=== PATIENT | female | born 1970 | race Caucasian/White ===

== ENCOUNTER 2022-07-03 13:01 | Outpatient (CLI) | payer OTHER, SELFPAY ==
--- NOTE | 2022-07-03 13:00 | CRLHL7_ITS ---
For Patients: As a result of the Century Cures Act, medical imaging exams and procedure reports are released immediately into your electronic medical record. You may view this report before your referring provider. If you have questions, please contact your health care provider. BILATERAL SCREENING MAMMOGRAM WITH COMPUTER-AIDED DETECTION TECHNIQUE: CC, MLO and Implant displaced views were obtained. These mammographic images have been obtained using full-field digital technique. These mammographic images were interpreted with the benefit of computer-aided detection. COMPARISON FILM: 09/26/20, 07/23/18, 12/09/13. FINDINGS: There are scattered areas of fibroglandular density IMPRESSION: There is no radiographic evidence for malignancy. ASSESSMENT: BI-RADS Category 2: Benign RECOMMENDATION: Routine screening mammogram in 1 year. A lay language report of this examination will be provided to the patient. Demian Chou M.D. Diagnostic/Nuclear Medicine Radiologist [email or web address] MARYLU/Dictated by: Demian Chou MD @ 07/04/2022 8:11:00 AM (Electronically Signed)
== END 2022-07-03 13:02 | disposition home or self-care (01) ==
LOC: MAMMO 13:02
PROVIDERS: PCP Family Medicine; Visit Provider Family Medicine
DX: Z12.31 Encounter for screening mammogram for malignant neoplasm of breast (principal)
CPT/HCPCS: 77063; 77067

== ENCOUNTER 2023-08-08 19:06 | Inpatient (IN) | payer OTHER, SELFPAY ==
[2023-08-08] VITALS (16 sets, daily range): BP systolic 126–175; BP diastolic 79–95; PULSE 70–99; RESP 14–18; TEMP 36.4–36.9; O2SAT 87–100; BMI 21.6
--- NOTE | 2023-08-08 19:27 | ED_ITS ---
HPI - General Adult General Chief complaint: Extremity Pain/Injury, Upper Stated complaint: L distal radial fracture-[facility] called Time Seen by Provider: 08/08/23 19:17 History of Present Illness HPI narrative: Pt fractured left wrist. Dr. Bynum to surgically repair. Pt states she fell out of the bed of her pickup truck this afternoon. Landed on LEFT wrist. Spoke to ortho PA and was seen for fx . 52-year-old woman presenting to the emergency department on advice Orthopedics for surgical repair of left wrist. Early this afternoon she was cleaning her truck. Jumped out of her truck and landed on her left hand/wrist. Denies loss of consciousness or hitting her head. X-rays were done showing angulated both- bone distal wrist fracture - I have reviewed these images. Arrives to the emergency department for preoperative evaluation anticipating surgery. Have d iscussed with surgeon Dr. Bynum. No injuries sustained elsewhere. There is a question though of potentially open fracture. Was noted to have an abrasion at the palm of the left hand. Has since been splinted after evaluation by Orthopedics. Last had a little Gatorade around 3:00 p.m.. Notes herself to be generally well with a history of hypertension. History also of hyponatremia Anxiety and depression Denies sleep apnea Surgeries include hysterectomy and bunionectomy and breast augmentation and appendectomy Medications include diltiazem hydrochlorothiazide lisinopril and venlafaxine Denies any problem with anesthesia Notes an allergy to penicillin but this was a rash as a child Denies substance use or smoking. Does drink alcohol occasionally he did not to excess. Does endorse to 12 oz beers around noon today. Notes herself to be generally quite active walking regularly. Denies any exercise intolerance. Related Data Home Medications Medication Instructions Recorded Confirmed diltiazem HCl 240 mg 240 mg PO DAILY 08/08/23 08/08/23 capsule,extended release 24 hr hydrochlorothiazide 25 mg tablet 25 mg PO DAILY 08/08/23 08/08/23 lisinopril 40 mg tablet 40 mg PO DAILY 08/08/23 08/08/23 venlafaxine 75 mg capsule,extended 75 mg PO DAILY 08/08/23 08/08/23 release 24 hr Previous Rx's Medication Instructions Recorded oxycodone 5 mg tablet 5 mg PO Q4-8H PRN pain #10 tabs 08/08/23 Allergies Allergy/AdvReac Type Severity Reaction Status Date / Time Penicillins Allergy Unknown Verified 08/08/23 19:28 Review of Systems Status of ROS: Reports: 6 or more systems reviewed and unremarkable except as noted in History and below [facility] Social History Smoking Status: Never smoker Do you use any of these nicotine containing products: None Second hand tobacco smoke exposure: No How often do you have a drink containing alcohol: monthly or less How many standard drinks containing alcohol do you have on a typical day: 1 or 2 AUDIT-C Alcohol total score: 1 Non-prescribed substance use: denies use service: No Exam Narrative: Exam Narrative: Very pleasant. Energetic. Tanned. NAD. Cranial nerves 2-12 intact. She appears to have a resting tremor particularly noticeable about the head and neck. Skin otherwise is warm and dry without apparent rash. Extremities are well perfused without edema other than some subtle swelling of the left hand fingers. The left wrist and distal forearm is covered by a splint. The 4th finger of the left hand has an old subungual hematoma. Oropharynx is moist. I cannot easily visualize the uvula. Lungs are clear. Heart in regular rate and rhythm without murmur rub or gallop. Abdomen is soft and nontender. No masses appreciated. Blood pressure noted to be a little elevated on arrival. Const: Vital Signs, click to edit/add: Vital Signs - 24 hr 08/08/23 19:17 Temperature 97.8 F Pulse Rate [Pulse Oximeter] 79 Respiratory Rate 16 Blood Pressure [Le ft Upper Arm] 175/95 H Pulse Oximetry 95 Oxygen Delivery Me thod Room Air Documenting provider has reviewed patient's vital signs: yes Course Vital Signs Vital signs: Initial Vital Signs Temperature 97.8 F 08/08/23 19:17 Temperature Source Temporal Artery Scan 08/08/23 19:17 Pulse Rate 79 08/08/23 19:17 Pulse Rhythm Regular 08/08/23 19:17 Pulse Strength 3+ Normal 08/08/23 19:17 Respiratory Rate 16 08/08/23 19:17 Blood Pressure 175/95 H 08/08/23 19:17 Blood Pressure Mean 121 H 08/08/23 19:17 Blood Pressure Position Sitting 08/08/23 19:17 Pulse Oximetry 95 08/08/23 19:17 Oxygen Delivery Method Room Air 08/08/23 19:17 Vital Signs Temperature 97.8 F 08/08/23 19:17 Pulse Rate 79 08/08/23 19:17 Respiratory Rate 16 08/08/23 19:17 Blood Pressure 175/95 H 08/08/23 19:17 Pulse Oximetry 95 08/08/23 19:17 Oxygen Delivery Method Room Air 08/08/23 19:17 Temperature 97.8 F 08/08/23 19:17 Pulse Rate 79 08/08/23 19:17 Respiratory Rate 16 08/08/23 19:17 Blood Pressure 175/95 H 08/08/23 19:17 Pulse Oximetry 95 08/08/23 19:17 Oxygen Delivery Method Room Air 08/08/23 19:17 Medical Decision Making MDM Narrative Medical decision making narrative: Anticipating surgery on her left wrist. Would appear to be a good surgical candidate. Would like to check labs though initially particularly electrolytes. Will also check an alcohol level. Hemoglobin and then CBC for platelets. Will place IV. Initially noted that would be having a local block of some sort but after discussion with Anesthesia and they are anticipating a full sedation. Pending above, would consider Ms. Marie appropriate for trial of anesthesia and proposed surgery. Normal platelets and hemoglobin. 8:20 p.m. Pending chemistries. Requesting pain medication. Will give 500 mL bolus of normal saline along with 50 mcg of fentanyl. Unfortunately labs resulted now with a sodium of 118. I find that Ms. Marie has been transferred to the OR anticipating surgery. I have requested EKG. I have discussed with surgeon that I would at least hold deep anesthesia. My preference would be for local anesthetic at this time however would have other anesthetic efficacy concerns given sodium of 118. As anticipated alcohol level is also elevated at 0.19. Recommendations would be to replace sodium level and monitor for alcohol withdrawal pending any deep sedation. Uncertain where sodium level usually is. Presumably multifactorial. Will need to be admitted. I have discussed with our hospitalist for admission. Lab Data Lab results reviewed: Yes I reviewed the patient's lab results Labs: Lab Results 08/08/23 Range/Units 19:49 WBC 8.70 (4.50-11.00) K/uL RBC 4.11 (4.00-5.20) m/uL Hgb 13.2 (12.0-16.0) gm/dL Hct 37.1 (33.0-51.0) % MCV 90 (80-100) fL MCH 32 (26-34) pg MCHC 36 (32-36) gm/dL RDW Coeff of Parish 11.3 L (11.5-15.5) % Plt Count 250 (140-440) K/uL Neut % (Auto) 85.7 H (42.0-72.0) % Lymph % (Auto) 9.2 L (20-44) % Childress % (Auto) 4.3 (0.0-11.0) % Eos % (Auto) 0.5 (0.0-7.0) % Baso % (Auto) 0.2 (0.0-3.0) % Neut # (Auto) 7.50 H (1.7-7.0) K/uL Lymph # (Auto) 0.80 L (0.90-2.90) K/uL Childress # (Auto) 0.40 (0.00-0.90) K/UL Eos # (Auto) 0.04 (0.00-0.50) K/uL Baso # (Auto) 0.02 (0.00-0.30) K/uL Abs Immat Gran (auto) 0.01 (0.00-0.30) K/uL Imm/Tot Granulo (auto) 0.1 % Sodium 118 L* (135-149) mmol/L Potassium 3.7 (3.6-5.1) mmol/L Chloride 79 L (96-114) mmol/L Carbon Dioxide 25 (20-32) mmol/L Anion Gap 14 (7-15) mEq/L BUN 6 L (7-30) mg/dL Creatinine 0.4 L (0.5-1.5) mg/dL Estimated Creat Clear 146.36 Estimated GFR 118 ml/min Glucose 94 (60-115) mg/dL Calcium 8.8 (8.4-10.6) mg/dL Ethyl Alcohol 0.19 H (0.01-0.03) % Discharge Plan Discharge Clinical Impression: Left wrist fracture, Alcohol intoxication Patient Disposition: Admitted As Observation Condition: Stable Instructions: Deep Sedation (DC), Peripheral Nerve Block (DC), ORIF of a Wrist Fracture (DC) Additional Instructions: F/u PA visit in 10 days for splint removal and cast application F/U Dr. Arias at 3 week juan post op. Activity Level: Activity as Tolerated Activity Detail: Elevate operative extremity at/above heart level Range of motion of any joint (including fingers) out of splint 10+ times per day as tolerated (Elbow & digits). If splint is in place, then maintain splint until followup May shower as tolerated. Keep splint clean and dry Ice to operative site as needed (20 min on, 20 min off; repeat) Discharge Diet: Regular Prescriptions: New oxycodone 5 mg tablet 5 mg PO Q4-8H PRN (Reason: pain) Qty: 10 0RF Continued venlafaxine 75 mg capsule,extended release 24hr 75 mg PO DAILY diltiazem HCl 240 mg capsule,extended release 24hr 240 mg PO DAILY hydrochlorothiazide 25 mg tablet 25 mg PO DAILY lisinopril 40 mg tablet 40 mg PO DAILY Follow Up/Referrals: Rivera Arias MD [Staff Physician] - Suzy Ge MD [Primary Care Provider] - Stand Alone Forms: [facility] Info Instructions
--- NOTE | 2023-08-08 20:00 | XR_ITS ---
Patient: GISSEL TRAN Facility:?[facility] Patient ID:?[id number] Site Patient ID:?[id number]. Site :?[id number] Study:?XRay-Extremity Left wrist 3v-08/08/2023 9:39:31 PM Ordering Physician:ERVIN Final Report: HISTORY: Status post ORIF of wrist fracture. COMPARISON: Plain films of the wrist from the same day. FINDINGS: Intraoperative fluoroscopy is provided. 25.7 seconds of fluoroscopic time was used. Three images from intraoperative fluoroscopy are submitted. AP, lateral, and oblique views of the left wrist are obtained for a total of three views. During the interval, the comminuted, transverse fracture of the distal radius has been reduced to near anatomic alignment with a volar metal plate and multiple anchoring screws. The comminuted, transverse fracture of the distal ulna has also been reduced to near anatomic alignment without fixation. The bones of the carpus are in anatomic alignment with the distal radial fracture fragments. No degenerative disease is seen. The soft tissues are normal in appearance with no sign of foreign body. IMPRESSION: 1. Near anatomic alignment of fracture fragments status post ORIF of the comminuted, transverse fracture of the distal radius. 2. The transverse, comminuted fracture of the distal ulna has been reduced to near anatomic alignment as well without fixation. Dictated by Dawson Broderick MD @ 08/09/2023 10:16:47 PM Signed by:?Dawson Broderick MD @08/09/2023 10:16:47 PM (Electronic Signature)
[2023-08-08 20:02] LABS: Basophils Absolute Auto 0.02 K/uL (0.00-0.30); Basophils Percent Auto 0.2 % (0.0-3.0); Eosinophils Absolute Auto 0.04 K/uL (0.00-0.50); Eosinophils Percent Auto 0.5 % (0.0-7.0); Hematocrit 37.1 % (33.0-51.0); Hemoglobin* 13.2 gm/dL (12.0-16.0); Immature Granulocytes Abs Auto 0.01 K/uL (0.00-0.30); Immature Granulocytes Pct Auto 0.1 %; Lymphocytes Percent Auto 9.2 % (20-44); Mean Corpuscular HGB Conc 36 gm/dL (32-36); Mean Corpuscular Hemoglobin 32 pg (26-34); Mean Corpuscular Volume 90 fL (80-100); Monocytes Percent Auto 4.3 % (0.0-11.0); Neutrophils Percent Auto 85.7 % (42.0-72.0); Platelet Count* 250 K/uL (140-440); RDW Coefficient of Variation % 11.3 % (11.5-15.5); Red Blood Count 4.11 m/uL (4.00-5.20)
[2023-08-08 20:11] LABS: Slide Review Reflex No
[2023-08-08] MEDS: 0.9 % SODIUM CHLORIDE 500 ML 500 ML 100 ML IV (20:17)
[2023-08-08 20:20] LABS: Chloride* 79 mmol/L (96-114); Potassium* 3.7 mmol/L (3.6-5.1)
[2023-08-08 20:22] LABS: Creatinine* 0.4 mg/dL (0.5-1.5); Est. Creatinine Clearance* 146.36; Estimated Glomerular Filt Rate 118 ml/min
[2023-08-08 20:23] LABS: Anion Gap 14 mEq/L (7-15); Blood Urea Nitrogen* 6 mg/dL (7-30); Carbon Dioxide* 25 mmol/L (20-32); Ethanol* 0.19 % (0.01-0.03); Glucose* 94 mg/dL (60-115)
--- NOTE | 2023-08-08 20:23 | PM.ORCN ---
History of Present Illness HPI Date Seen: 08/08/23 Chief complaint: L distal radial fracture-[facility] called Narrative: Shelby is a pleasant 52-year-old female. She was trying to clean out bed of her pickup truck. Washed it out, unfortunately slipped getting out and landed onto an outstretched left arm. Severe pain and deformity. She notified 1 of our PAs, Radha Potter. They presented to the [facility]. X-rays were obtained. This revealed a left distal radius fracture. There is also small erythematous region with sanguinous drainage on the volar ulnar aspect of the wrist. This was felt to be an open fracture. She then was encouraged to present to [facility]. Thereafter we anticipated she would need surgery for irrigation debridement of the open distal radius fracture on the left as well as ORIF. Her wrist was splinted in our orthopedic clinic. Last drank a little Gatorade around 3:00 p.m.. Notes herself to be generally well with a history of hypertension. History also of hyponatremia Anxiety and depression Denies sleep apnea Surgeries include hysterectomy and bunionectomy and breast augmentation and appendectomy Medications include diltiazem hydrochlorothiazide lisinopril and venlafaxine Denies any problem with anesthesia Notes an allergy to penicillin but this was a rash as a child Denies substance use or smoking. Does drink alcohol occasionally he did not to excess. Does endorse to 12 oz beers around noon today. Notes herself to be generally quite active walking regularly. Denies any exercise intolerance. [facility] Social History Smoking Status: Never smoker Do you use any of these nicotine containing products: None Second hand tobacco smoke exposure: No How often do you have a drink containing alcohol: monthly or less How many standard drinks containing alcohol do you have on a typical day: 1 or 2 AUDIT-C Alcohol total score: 1 Non-prescribed substance use: denies use service: No Meds Home Medications and Allergies Home Medications Medication Instructions Recorded Confirmed Type diltiazem HCl 240 mg 240 mg PO DAILY 08/08/23 08/08/23 History capsule,extended release 24 hr hydrochlorothiazide 25 mg tablet 25 mg PO DAILY 08/08/23 08/08/23 History lisinopril 40 mg tablet 40 mg PO DAILY 08/08/23 08/08/23 History venlafaxine 75 mg capsule,extended 75 mg PO DAILY 08/08/23 08/08/23 History release 24 hr Allergies Allergy/AdvReac Type Severity Reaction Status Date / Time Penicillins Allergy Unknown Verified 08/08/23 19:28 Ortho Exam Narrative Exam Narrative: Alert and orient x3. No acute distress. Nonlabored breathing. Cooperative with the exam. Exam of the left upper extremity shows short-arm splint to be in place. Picture of the immediate post injury time shows an abrasion with erythema on the volar ulnar aspect of the wrist measures approximately 5 mm in diameter. This is overlying the apex of the angulation volarly. Neurologically intact distally in the radial, ulnar, and median nerve distribution to sensory light touch and motor function. Digits pink, warm, brisk capillary refill. Const Vital Signs, click to edit/add: Vital Signs - 24 hr 08/08/23 19:17 Temperature 97.8 F Pulse Rate [Pulse Oximeter] 79 Respiratory Rate 16 Blood Pressure [Left Upper Arm] 175/95 H Pulse Oximetry 95 Oxygen Delivery Method Room Air Results Labs Labs: Laboratory Results - last 48 hr 08/08/23 19:49 WBC 8.70 RBC 4.11 Hgb 13.2 Hct 37.1 MCV 90 MCH 32 MCHC 36 RDW Coeff of Parish 11.3 L Plt Count 250 Neut % (Auto) 85.7 H Lymph % (Auto) 9.2 L Dolores % (Auto) 4.3 Eos % (Auto) 0.5 Baso % (Auto) 0.2 Neut # (Auto) 7.50 H Lymph # (Auto) 0.80 L Dolores # (Auto) 0.40 Eos # (Auto) 0.04 Baso # (Auto) 0.02 Abs Immat Gran (auto) 0.01 Imm/Tot Granulo (auto) 0.1 Diagnostic results Additional Comments: PA, lateral, and oblique views of the left wrist from [facility] dated 08/08/2023 were ordered by different provider and reviewed by me. This demonstrates a left distal radius extra-articular fracture that is primarily transverse through the metaphyseal region. 45 degree dorsal angulation. There is a distal ulna metaphyseal fractures well. Both of these are comminuted fractures. Shortened as well. Assessment and Plan Assessment and plan (1) Open fracture of left distal radius: Status: Acute Plan Had a good discussion today with Shelby. In my opinion, given the concern for open fracture, I do feel that this is an urgent surgery. I would recommend irrigation debridement as well as open reduction with internal fixation of the left distal radius. We discussed the risks, benefits, and alternatives to this elective surgery. This includes infection, wound healing issues, nerve injury, numbness/tingling, heart attack, stroke, etc.. After discussion of these risks and benefits and alternatives, she indeed elects to proceed with surgery. Will plan to do this tonight. We have called in the operating room team. After the surgery, I would anticipate short-arm splint. I would also anticipate that she may go home this evening. Her is with her. Good social support system at home.
[2023-08-08 20:24] LABS: Calcium* 8.8 mg/dL (8.4-10.6)
[2023-08-08 20:27] LABS: Sodium* 118 mmol/L (135-149)
--- NOTE | 2023-08-08 20:52 | SUR.OPER ---
PATIENT QUESTIONS ANSWERED SATISFACTORILY PREOPERATIVELY. PATIENT BROUGHT TO OR #2 PER WHEELCHAIR FROM E.D. Patient positioned supine on OR #2 bed. The perioperative team supported arms bilaterally on arm boards. Final approval of positioning by surgeon.
[2023-08-08 21:13] LABS: Sodium* 117 mmol/L (135-149)
[2023-08-08] MEDS: lidocaine HCL 2 % MULTIDOSE 20 ML VIAL 10 ML INJECTION (21:44)
[2023-08-08] MEDS: BUPIVACAINE 0.5 %/EPI 1:200K 10 ML INJECTION (21:44)
[2023-08-08] MEDS: BACITRACIN OINTMENT BULK TUBE 1 APPLIC TOPICAL (21:59)
--- NOTE | 2023-08-08 22:15 | PM.ORPRC ---
Procedure Note Date of procedure: 08/08/23 Procedure: PREOPERATIVE DIAGNOSES: 1. Left distal radius fracture extra-articular, comminuted, 3+ parts, substantially dorsally angulated, dorsally displaced, and unstable-open fracture POSTOPERATIVE DIAGNOSES: 1. Left distal radius fracture extra-articular, comminuted, 3+ parts, substantially dorsally angulated, dorsally displaced, and unstable-closed fracture NAME OF OPERATION: 1. Left distal radius open reduction with internal fixation of extra-articular 3+ part with comminution. SURGEON: Rivera Arias MD LEGAL PROCESS SPECIALIST: Radha Lindo Pac - Of note, an occupational therapist assistants was critical for this case to aide in patient positioning, limb manipulation, tissue retraction, closure, and splinting. ANESTHESIA: Supraclavicular block EBL: 5 mL IMPLANTS: Synthes dual column volar locking plate with 1.8 mm distal locking pegs and 2.4 mm proximal locking screws. TOURNIQUET: 49 minutes at 220 torr. INDICATIONS: The patient is a pleasant, 52-year-old female] who sustained a left wrist injury after a fall. They had difficulty with use of the extremity and deformity. Workup included xrays which revealed an unstable substantially angulated and displaced fracture. Given these findings, surgery was recommended to stablize the fracture. FINDINGS: Closed, comminuted, displaced, dorsally angulated distal radius fracture and distal ulna metaphyseal fracture also comminuted. PROCEDURE: Following a thorough discussion of risks, benefits, and alternatives, consent was obtained and the operative extremity was marked. The patient was brought to the operating room and placed supine on the operating table. Induction of anesthesia was achieved. Appropriate time out was performed identifying proper patient, site and procedure. 1 g IV Ancef was administered within 1 hour of incision preoperatively. The left upper extremity was prepped and draped in the appropriate sterile fashion using ChloraPrep prep. The limb was exsanguinated and the tourniquet inflated. Initially, it was felt that she had an open fracture to this left distal radius. Her volar ulnar side of the wrist had a 5-7 mm abrasion but it looked also have active bleeding in the clinic visit. We had a thorough inspection of the skin in the operating room and it certainly had superficial abrasion to it, but did not appear to penetrate once we were able to clean up her skin thoroughly. A longitudinal incision was made overlying the FCR tendon. Sharp incision through skin and subcutaneous tissue allowed identification of the FCR tendon. The superficial sheath was sharply divided, the tendon retracted ulnarly, and the deep fascial sheath also released. The FPL was retracted ulnarly and the pronator quadratus was sharply released from the radial border of the radius and subperiosteally elevated. The fracture was encountered and cleared of interposed periosteum / fracture hematoma. A reduction was performed and the appropriate plate selected. Temporary stabilization allowed C-arm fluoroscopy to confirm proper fracture reduction and plate positioning. The oblong hole was filled with a nonlocking screw followed by multiple distal locking pegs being careful to keep these in subchondral bone and extraarticular. Finally, the remaining proximal shaft screws were drilled and placed. Fluoroscopic imaging confirmed the improved position and showed the fracture to be stable. At this stage, the wound was thoroughly irrigated with normal saline. Closure performed with 0 Vicryl for the pronator quadratus, followed by deflation of the tourniquet. All major bleeding points were cauterized. Closure was then completed with 3-0 Vicryl for the subcutaneous, and 4-0 statafix for subcuticular closure. Dressings were applied along with a volar/dorsal splint. The patient was awoken from anesthesia and transferred to PACU in stable condition. PLAN: 1. Elevate operative extremity. 2. Ice, acetominphen or ibuprofen PRN. 3. Oxycodone for pain as needed. 4. Hospital admission given sodium level of 118 as well as blood alcohol level of 0.19 for monitoring overnight. 5. Follow up with PA visit in 10-16 days for wound check and splint removal and short-arm cast application.
[2023-08-08] MEDS: fentaNYL 100 MCG/2 ML inj 50 MCG IVP ×3 (22:40→22:47)
--- NOTE | 2023-08-08 22:54 | P.IMCN_ITS ---
Date of Consult Patient: Samreen Patient Consult date: 08/08/23 Requesting Physician: Orthopedics Primary Care Provider: Suzy Ge MD Consult Narrative Reason for consult: Post-op hyponaatremia, alcohol intoxication, essential hypertension Narrative: Shelby Marie is a 52 year old woman who underwent an urgent surgical debridement of an open distal radial fracture on the left as well as an open reduction and internal fixation today. Reportedly she was cleaning out the bed of a pickup truck when she slipped and landed on her outstretched left arm. Had immediate pain and deformity. X-rays obtained at the [facility] demonstrated left distal radial fracture with small erythematous region with sanguinous drainage on volar ulnar aspect of the wrist consistent with an open fracture. While assessing the patient in the emergency department of [facility], labs were drawn but results were not yet obtained. Patient was brought to the OR. Later results of labs came back demonstrating a serum sodium of 118. It was redrawn and confirmed to be low at 117. Additionally her blood alcohol level was elevated at 0.19. Preoperatively patient indicated she had a single beer today around noon. Does have a history of alcohol use, although quantity is not clear. Outside medical records suggest that she drinks about 1 can of beer per day. More recent outside medical records indicate that she has cut down on her alcohol consumption. Also, patient has had longstanding hyponatremia. Previously it was thought that perhaps her low sodium was related to polydipsia. More recently she was also started on hydrochlorothiazide 25 mg daily, which can cause hyponatremia. Has been on lisinopril for some time with doses gradually increased over time, presently on 40 mg daily, which can also cause hyponatremia. Surgery undertaken without any apparent complications or difficulties. Review of Systems Status of ROS: Reports: 6 or more systems reviewed and unremarkable except as noted in History and below Narrative: She is still coming out of anesthesia when I meet her in the recovery room. She tells me she has not had any recent illnesses. No other recent trauma or injury. No recent blood loss. Denies cardiopulmonary symptoms. Denies gastrointestinal or genitourinary symptoms. Known to have chronic tremor. Tremor may have increased over the last 6-12 months. I speak with her about her alcohol use in a nonchalant manner, and she does not acknowledge or deny when I speak with her about her blood alcohol level being elevated at 0.19. She is more interested in her serum sodium being low at 118. [facility] Medical History (Updated 08/08/23 @ 23:27 by Cedrick Harris MD) Tobacco use disorder ?F17.200 - Nicotine dependence, unspecified, uncomplicated (ICD-10) Intramural leiomyoma of uterus ?D25.1 - Intramural leiomyoma of uterus (ICD-10) 2 para 2 ?Z78.9 - Other specified health status (ICD-10) History of subdural hematoma ?Z86.79 - Personal history of other diseases of the circulatory system (ICD- 10) History of syncope ?Z87.898 - Personal history of other specified conditions (ICD-10) History of orthostatic hypotension ?Z86.79 - Personal history of other diseases of the circulatory system (ICD- 10) Raynaud's syndrome ?I73.00 - Raynaud's syndrome without gangrene (ICD-10) Attention deficit hyperactivity disorder (ADHD), combined type ?F90.2 - Attention-deficit hyperactivity disorder, combined type (ICD-10) Anxiety disorder ?F41.9 - Anxiety disorder, unspecified (ICD-10) Chronic hyponatremia ?E87.1 - Hypo-osmolality and hyponatremia (ICD-10) Alcohol use disorder ?F10.90 - Alcohol use, unspecified, uncomplicated (ICD-10) Hypertension ?I10 - Essential (primary) hypertension (ICD-10) Surgical History History of tubal ligation ?Z98.51 - Tubal ligation status (ICD-10) History of hysterectomy ?Z90.710 - Acquired absence of both cervix and uterus (ICD-10) Hx of appendectomy ?Z90.49 - Acquired absence of other specified parts of digestive tract (ICD- 10) Family History Mother Alcohol dependence Arthritis Psychiatric illness Paternal Grandfather Diabetes Heart disease High cholesterol High blood pressure Paternal Grandmother High cholesterol Father High blood pressure Social History Smoking Status: Never smoker Do you use any of these nicotine containing products: None Second hand tobacco smoke exposure: No How often do you have a drink containing alcohol: monthly or less How many standard drinks containing alcohol do you have on a typical day: 1 or 2 AUDIT-C Alcohol total score: 1 Non-prescribed substance use: denies use service: No Meds Home Medications and Allergies Home Medications Medication Instructions Recorded Confirmed Type diltiazem HCl 240 mg 240 mg PO DAILY 08/08/23 08/08/23 History capsule,extended release 24 hr hydrochlorothiazide 25 mg tablet 25 mg PO DAILY 08/08/23 08/08/23 History lisinopril 40 mg tablet 40 mg PO DAILY 08/08/23 08/08/23 History venlafaxine 75 mg capsule,extended 75 mg PO DAILY 08/08/23 08/08/23 History release 24 hr Allergies Allergy/AdvReac Type Severity Reaction Status Date / Time Penicillins Allergy Unknown Verified 08/08/23 19:28 Exam Narrative: Exam Narrative: I examined patient in surgical recovery unit. She is now status post general anesthesia and surgery. She is awake and interacting. Appears comfortable and in no acute distress. Vision and hearing seem normal at this time. Alert and oriented to self, place, time, situation. Cooperative and friendly. Articulate. No jaundice, icterus, petechiae. Upper tore some and neck are red, with the appearance of minor sunburn. Cranial nerves 3-12 are grossly normal. Cast on left forearm. Moves all fingers. Lungs are clear to auscultation. Heart tones with regular rhythm, with normal S1-S2, without murmur, gallop, or rub. Abdomen with active bowel sounds, soft, nontender. Moves all 4 extremities. Follows commands. Const: Vital Signs, click to edit/add: Vital Signs - 24 hr 08/08/23 19:17 08/08/23 22:11 08/08/23 22:16 Temperature 97.8 F 97.5 F L Pulse Rate 99 93 Pulse Rate [Pulse Oximeter] 79 Respiratory Rate 16 16 18 Blood Pressure 148/90 H 142/87 H Blood Pressure [Le ft Upper Arm] 175/95 H Pulse Oximetry 95 94 93 Oxygen Delivery Me thod Room Air Room Air Room Air Oxygen Flow Rate 08/08/23 22:20 08/08/23 22:25 08/08/23 22:30 Temperature 97.6 F Pulse Rate 88 88 82 Pulse Rate [Pulse Oximeter] Respiratory Rate 16 14 16 Blood Pressure 139/95 H 138/84 135/80 Blood Pressure [Le ft Upper Arm] Pulse Oximetry 98 99 100 Oxygen Delivery Me thod OxyMask OxyMask OxyMask Oxygen Flow Rate 10 10 10 08/08/23 22:35 08/08/23 22:40 08/08/23 22:45 Temperature 97.6 F Pulse Rate 77 73 73 Pulse Rate [Pulse Oximeter] Respiratory Rate 14 14 18 Blood Pressure 127/82 126/82 134/84 Blood Pressure [Le ft Upper Arm] Pulse Oximetry 100 98 98 Oxygen Delivery Me thod OxyMask OxyMask Room Air Oxygen Flow Rate 6 6 08/08/23 22:50 Temperature Pulse Rate 73 Pulse Rate [Pulse Oximeter] Respiratory Rate 16 Blood Pressure 138/86 Blood Pressure [Le ft Upper Arm] Pulse Oximetry 97 Oxygen Delivery Me thod Room Air Oxygen Flow Rate Documenting provider has reviewed patient's vital signs: yes Labs Labs: Short CBC 08/08/23 Range/Units 19:49 WBC 8.70 (4.50-11.00) K/uL Hgb 13.2 (12.0-16.0) gm/dL Hct 37.1 (33.0-51.0) % Plt Count 250 (140-440) K/uL BMP 08/08/23 08/08/23 19:49 20:55 Sodium 118 L* 117 L* Potassium 3.7 Chloride 79 L Carbon Dioxide 25 BUN 6 L Creatinine 0.4 L Glucose 94 Calcium 8.8 ECG Attestation: I personally reviewed and interpreted this ECG as follows: Interpretation: Normal sinus rhythm without ischemic changes. Assessment and Plan Assessment and plan (1) Open fracture of left distal radius: Status: Acute (2) Left wrist fracture: Problem comment: Date of injury 08/08/2023 Status: Acute (3) Chronic hyponatremia: Problem comment: - historically thought to be multifactorial including from alcohol consumption and polydipsia - cause also likely related to hydrochlorothiazide use as of 08/08/2023 - since January 2023, sodium between 132 and 135 typically, with high value of 137 on 04/14/23 and low value of 127 on 05/05/2023. - will continue normal saline at 75 mL/hour for now and monitor serum sodium. - will restrict her water intake to 1500 mL per day for now. Status: Acute (4) Alcohol intoxication: Status: Acute (5) Alcohol use disorder: Problem comment: - 08/08/2023: Patient acknowledges drinking one 12 oz can of beer at noon only, with blood alcohol level of 0.19 drawn at 19:49 on 08/09/2023, with parent having no apparent difficulty with gait or balance or lethargy, thereby suggesting denial of alcohol use and tolerance to alcohol. - in-hospital we will monitor for possible alcohol withdrawal and use CIWA driven lorazepam protocol if needed. Additionally, I will empirically start her on gabapentin 300 mg t.i.d. prophylactically in an effort to minimize alcohol withdrawal. Status: Acute (6) Hypertension: Problem comment: - 08/08/2023: On 3 drug regimen consisting of diltiazem CD 2 140 mg once daily, lisinopril 40 mg once daily, hydrochlorothiazide 25 mg once daily. - transthoracic echocardiogram 01/2023 demonstrated: Normal LV size, wall thickness, function, with EF of 65-70%; normal RV cavity size, global systolic function; no significant valve disease; normal estimated PA and central venous pressures. - in-hospital I will hold her hydrochlorothiazide and lisinopril due to the fact that they can both cause hyponatremia, and continue with the diltiazem for now. May need to consider restarting lisinopril. Status: Acute Plan 1. Reviewed my impression with the patient and with Dr. Rivera Arias. 2. Will follow with Orthopedic surgery. 3. Will address her high risk for alcohol withdrawal and will address her hyponatremia.
--- NOTE | 2023-08-08 23:37 | P.ANES_ITS ---
Anesthesia Charges Start Date/Time Anesthesia Start Date: 08/08/23 Anesthesia Start Time: 20:21 Stop Date/Time Anesthesia Stop Date: 08/08/23 Anesthesia Stop Time: 22:00 Summary Emergency: [facility]
[2023-08-08] MEDS: ACETAMINOPHEN 325 MG TABLET 650 MG PO (23:56)
[2023-08-08] MEDS: SENNOSIDES 1 TAB TABLET 2 TAB PO (23:57)
[2023-08-08] MEDS: OXYCODONE 5 MG TABLET PO (23:57)
[2023-08-08] MEDS: GABAPENTIN 300 MG CAPSULE PO (23:57)
[2023-08-08] MEDS: 0.9 % SODIUM CHLORIDE 1000 ml 1,000 ML 75 ML IV (23:58)
[2023-08-09] VITALS (11 sets, daily range): BP systolic 128–160; BP diastolic 76–89; PULSE 66–77; RESP 14–18; TEMP 36.4–36.6; O2SAT 92–96
[2023-08-09] MEDS: THIAMINE 100 MG TABLET PO (00:04)
[2023-08-09 00:22] LABS: Sodium* 117 mmol/L (135-149)
[2023-08-09] MEDS: OXYCODONE 5 MG TABLET PO (02:21)
[2023-08-09] MEDS: ACETAMINOPHEN 325 MG TABLET 650 MG PO (06:36)
[2023-08-09 06:39] LABS: Hematocrit 34.6 % (33.0-51.0); Hemoglobin* 12.5 gm/dL (12.0-16.0); Mean Corpuscular HGB Conc 36 gm/dL (32-36); Mean Corpuscular Hemoglobin 33 pg (26-34); Mean Corpuscular Volume 91 fL (80-100); Platelet Count* 224 K/uL (140-440); White Blood Count* 8.23 K/uL (4.50-11.00)
[2023-08-09 06:52] LABS: Albumin* 4.7 g/dL (3.3-5.0); Chloride* 88 mmol/L (96-114); Potassium* 4.3 mmol/L (3.6-5.1)
[2023-08-09 06:55] LABS: Alanine Aminotransferase* 29 U/L (4-35); Alkaline Phosphatase* 48 U/L (40-150); Anion Gap 9 mEq/L (7-15); Aspartate Amino Transferase* 45 U/L (12-35); Bilirubin Total* 0.7 mg/dL (0.1-1.5); Blood Urea Nitrogen* 7 mg/dL (7-30); Calcium* 8.7 mg/dL (8.4-10.6); Carbon Dioxide* 26 mmol/L (20-32); Creatinine* 0.5 mg/dL (0.5-1.5); Est. Creatinine Clearance* 117.09; Estimated Glomerular Filt Rate 112 ml/min; Glucose* 99 mg/dL (60-115); Total Protein* 7.6 g/dL (6.0-8.3)
--- NOTE | 2023-08-09 07:06 | PC.NURSE ---
Pt is alert and oriented x3. Pt reports 7/10 pain in left wrist, pain managed with PRN medication. Pt?s dressing to left wrist is CDI. Pt?s CIWA scores were 0-1. Pt reported mild nausea once during night after getting up to use the restroom, has resolved. Pt is up SBA to bathroom with IV pole. Pt is voiding, and tolerating liquid, attempting this morning to try toast.
[2023-08-09 07:14] LABS: Sodium* 123 mmol/L (135-149)
[2023-08-09 07:20] LABS: Slide Review Reflex No
--- NOTE | 2023-08-09 08:41 | PM.ORPN ---
Subjective Subjective Date Seen: 08/09/23 Principal diagnosis: Left distal radius fracture Interval history: This morning, Shelby is appropriately interactive. She seems to be herself. 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 She reports minimal pain about the left wrist. No fevers or chills. No chest pain or shortness of breath. No fogginess or mentation challenges, per her report. Ortho Exam Narrative Exam Narrative: Left upper extremity shows short-arm splint being placed. Neurologically intact in the radial, ulnar, and median nerve distribution to sensory light touch and motor function. Digits pink, warm, brisk capillary refill. She is appropriately interactive with the conversation today. Mentation intact. Const Vital Signs, click to edit/add: Vital Signs - 24 hr 08/08/23 19:17 08/08/23 22:11 08/08/23 22:16 Temperature 97.8 F 97.5 F L Pulse Rate 99 93 Pulse Rate [Pulse Oximeter] 79 Pulse Rate [Right Pulse Oximeter] Respiratory Rate 16 16 18 Blood Pressure 148/90 H 142/87 H Blood Pressure [Left Arm] Blood Pressure [Left Upper Arm] 175/95 H Blood Pressure [Right Arm] Pulse Oximetry 95 94 93 Oxygen Delivery Method Room Air Room Air Room Air Oxygen Flow Rate 08/08/23 22:20 08/08/23 22:25 08/08/23 22:30 Temperature 97.6 F Pulse Rate 88 88 82 Pulse Rate [Pulse Oximeter] Pulse Rate [Right Pulse Oximeter] Respiratory Rate 16 14 16 Blood Pressure 139/95 H 138/84 135/80 Blood Pressure [Left Arm] Blood Pressure [Left Upper Arm] Blood Pressure [Right Arm] Pulse Oximetry 98 99 100 Oxygen Delivery Method OxyMask OxyMask OxyMask Oxygen Flow Rate 10 10 10 08/08/23 22:35 08/08/23 22:40 08/08/23 22:45 Temperature 97.6 F Pulse Rate 77 73 73 Pulse Rate [Pulse Oximeter] Pulse Rate [Right Pulse Oximeter] Respiratory Rate 14 14 18 Blood Pressure 127/82 126/82 134/84 Blood Pressure [Left Arm] Blood Pressure [Left Upper Arm] Blood Pressure [Right Arm] Pulse Oximetry 100 98 98 Oxygen Delivery Method OxyMask OxyMask Room Air Oxygen Flow Rate 6 6 08/08/23 22:50 08/08/23 22:55 08/08/23 23:00 Temperature 97.7 F Pulse Rate 73 73 75 Pulse Rate [Pulse Oximeter] Pulse Rate [Right Pulse Oximeter] Respiratory Rate 16 16 14 Blood Pressure 138/86 138/87 136/83 Blood Pressure [Left Arm] Blood Pressure [Left Upper Arm] Blood Pressure [Right Arm] Pulse Oximetry 97 98 97 Oxygen Delivery Method Room Air OxyMask OxyMask Oxygen Flow Rate 6 5 08/08/23 23:05 08/08/23 23:15 08/08/23 23:15 Temperature 97.7 F 98.5 F 98.5 F Pulse Rate 80 Pulse Rate [Pulse Oximeter] Pulse Rate [Right Pulse Oximeter] 76 76 Respiratory Rate 16 14 14 Blood Pressure 131/79 Blood Pressure [Left Arm] Blood Pressure [Left Upper Arm] Blood Pressure [Right Arm] 140/89 H 140/89 H Pulse Oximetry 97 87 L 87 L Oxygen Delivery Method OxyMask Room Air Room Air Oxygen Flow Rate 5 08/08/23 23:15 08/08/23 23:15 08/08/23 23:30 Temperature 98.5 F 98.4 F Pulse Rate 76 72 Pulse Rate [Pulse Oximeter] Pulse Rate [Right Pulse Oximeter] Respiratory Rate 14 14 14 Blood Pressure 140/89 H 136/83 Blood Pressure [Left Arm] Blood Pressure [Left Upper Arm] Blood Pressure [Right Arm] Pulse Oximetry 87 L 97 92 Oxygen Delivery Method Room Air Room Air Nasal Cannula Oxygen Flow Rate 1 08/08/23 23:45 08/09/23 00:00 08/09/23 00:15 Temperature 98.2 F 97.8 F 97.7 F Pulse Rate 70 73 Pulse Rate [Pulse Oximeter] Pulse Rate [Right Pulse Oximeter] 68 Respiratory Rate 16 16 16 Blood Pressure 133/81 135/79 Blood Pressure [Left Arm] 134/82 Blood Pressure [Left Upper Arm] Blood Pressure [Right Arm] Pulse Oximetry 94 93 95 Oxygen Delivery Method Nasal Cannula Nasal Cannula Room Air Oxygen Flow Rate 1 0.5 08/09/23 00:15 08/09/23 00:30 08/09/23 01:00 Temperature 97.7 F 97.7 F Pulse Rate 68 68 Pulse Rate [Pulse Oximeter] Pulse Rate [Right Pulse Oximeter] 68 Respiratory Rate 16 14 16 Blood Pressure 134/79 136/79 Blood Pressure [Left Arm] 134/84 Blood Pressure [Left Upper Arm] Blood Pressure [Right Arm] Pulse Oximetry 95 96 96 Oxygen Delivery Method Room Air Room Air Room Air Oxygen Flow Rate 08/09/23 01:00 08/09/23 01:30 08/09/23 02:00 Temperature 97.6 F Pulse Rate 68 68 66 Pulse Rate [Pulse Oximeter] Pulse Rate [Right Pulse Oximeter] Respiratory Rate 16 16 16 Blood Pressure 134/84 128/79 135/76 Blood Pressure [Left Arm] Blood Pressure [Left Upper Arm] Blood Pressure [Right Arm] Pulse Oximetry 96 92 93 Oxygen Delivery Method Room Air Room Air Room Air Oxygen Flow Rate 08/09/23 03:00 08/09/23 04:00 08/09/23 04:00 Temperature 97.8 F 97.8 F Pulse Rate 66 69 Pulse Rate [Pulse Oximeter] Pulse Rate [Right Pulse Oximeter] 69 Respiratory Rate 16 16 16 Blood Pressure 132/82 131/80 Blood Pressure [Left Arm] 131/80 Blood Pressure [Left Upper Arm] Blood Pressure [Right Arm] Pulse Oximetry 92 94 94 Oxygen Delivery Method Room Air Room Air Room Air Oxygen Flow Rate 08/09/23 04:33 08/09/23 08:00 08/09/23 08:15 Temperature 97.7 F 97.9 F 97.9 F Pulse Rate 68 Pulse Rate [Pulse Oximeter] Pulse Rate [Right Pulse Oximeter] 77 77 Respiratory Rate 16 18 18 Blood Pressure 134/82 Blood Pressure [Left Arm] 160/89 H 160/89 H Blood Pressure [Left Upper Arm] Blood Pressure [Right Arm] Pulse Oximetry 95 92 92 Oxygen Delivery Method Room Air Room Air Room Air Oxygen Flow Rate 0.5 Assessment and Plan Assessment and plan (1) Open fracture of left distal radius: Status: Acute Plan She is doing well just 12 hours after left distal radius ORIF. From an orthopedic standpoint, I think she is safe for discharge at any time. I have converse with the hospitalist and acknowledge that they may need more workup for the hyponatremia, or perhaps more confirmation that this is something that has been a chronic issue for Shelby. Either way, I appreciate the hospitalist's expertise and care for this patient. Discharge stuff is placed for orthopedic related things/follow-up.
[2023-08-09] MEDS: FOLIC ACID 1 MG TABLET PO (09:14)
[2023-08-09] MEDS: dilTIAZem 240 MG CAP (CD) PO (09:14)
[2023-08-09] MEDS: SENNOSIDES 1 TAB TABLET 2 TAB PO (09:14)
[2023-08-09] MEDS: MULTIVITAMIN/MINERALS 1 TABLET 1 TAB PO (09:15)
[2023-08-09] MEDS: GABAPENTIN 300 MG CAPSULE PO (09:15)
[2023-08-09] MEDS: VENLAFAXINE ER 75 MG CAPSULE PO (09:15)
--- NOTE | 2023-08-09 10:21 | PM.DS1 ---
DS: Providers Provider Date Seen: 08/09/23 Date of admission: 08/08/23 22:38 Primary care physician: Suzy Ge MD Admitting Clinician: Cedrick Harris MD Consults: 08/08/23 22:22 Consult to Physician [CONS] Routine Comment: Consulting Provider: Hospitalists Has provider been notified: Yes Attending Physician on discharge: MD Parris Vincent, [facility], PA-C Date of Discharge: 08/09/23 DS: Diagnosis Discharge Diagnosis (1) Open fracture of left distal radius: Status: Acute Problem details: POD# 1 s/p left distal radius ORIF. Postsurgical management per Orthopedic surgery. Outpatient clinic follow-up 10 days. (2) Left wrist fracture: Status: Acute Problem details: Date of injury 08/08/2023. Management as above (3) Chronic hyponatremia: Status: Acute Problem details: Historically thought to be multifactorial including from alcohol consumption and polydipsia. Previous hospitalization January 2023. Currently, likely additionally related to hydrochlorothiazide use as of 08/08/2023. Hydrochlorothiazide is held, to be resumed at PCP discretion. Sodium 123 on day of discharge, up from 117 on admission. Patient is discharged with fluid restriction 1800 mL. Sodium recheck 48 hours. She has managed this in the past and is being monitored by her PCP. (4) Alcohol intoxication: Status: Acute Problem details: ETOH 0.19 on admission. CIWA 0-1 overnight. Patient anxious to discharge following surgery. Outpatient follow-up with PCP. (5) Alcohol use disorder: Status: Acute Problem details: On admission, patient reports drinking one 12 oz can of beer at noon only, with blood alcohol level of 0.19 drawn at 19:49 on 08/09/2023, with having no apparent difficulty with gait or balance or lethargy, thereby suggesting denial of alcohol use and tolerance to alcohol. Empirically started on gabapentin 300 mg t.i.d. prophylactically in an effort to minimize alcohol withdrawal. CIWA 0-1 overnight. (6) Hypertension: Status: Acute Problem details: On 3 drug regimen consisting of diltiazem CD 2 140 mg once daily, lisinopril 40 mg once daily, hydrochlorothiazide 25 mg once daily. - transthoracic echocardiogram 01/2023 demonstrated: Normal LV size, wall thickness, function, with EF of 65-70%; normal RV cavity size, global systolic function; no significant valve disease; normal estimated PA and central venous pressures. Hydrochlorothiazide is held on discharge, to be resumed by PCP. Lisinopril resumed, continue diltiazem. Outpatient follow-up for medication management in setting of chronic hyponatremia. DS: Summary Hospital Course Hospital Course: [age] year old female past medical history significant for alcohol use disorder, hypertension, chronic hyponatremia was admitted to the medical floor for management left distal radial fracture in setting of acute alcohol intoxication and acute on chronic hyponatremia. Course of care and details as noted above. POD# 1 status post ORIF left distal radius, patient anxious to discharge to home. Sodium trended up from 117-123. Discharged home with fluid restriction, hydrochlorothiazide held. Recheck sodium 48 hours PCP. Remainder of chronic medical comorbidities were monitored and managed with home medications. Status at Discharge Overall status at discharge: patient is back to baseline Time Spent with Patient Time attestation: Total time spent providing and/or coordinating discharge services: Time spent: Greater than 30 minutes Exam Narrative: Exam Narrative: PHYSICAL EXAM General: Pleasant, conversant, NAD Cardiovascular: RRR Pulmonary: No dyspnea on room air Extremities: No gross joint deformity or swelling. Postoperative dressing/cast in place, dry. Neurovascularly intact Skin: Warm, dry. Const: Vital Signs, click to edit/add: Vital Signs - 24 hr 08/08/23 19:17 08/08/23 22:11 08/08/23 22:16 Temperature 97.8 F 97.5 F L Pulse Rate 99 93 Pulse Rate [Pulse Oximeter] 79 Pulse Rate [Right Pulse Oximeter] Respiratory Rate 16 16 18 Blood Pressure 148/90 H 142/87 H Blood Pressure [Le ft Arm] Blood Pressure [Le ft Upper Arm] 175/95 H Blood Pressure [Ri ght Arm] Pulse Oximetry 95 94 93 Oxygen Delivery Me thod Room Air Room Air Room Air Oxygen Flow Rate 08/08/23 22:20 08/08/23 22:25 08/08/23 22:30 Temperature 97.6 F Pulse Rate 88 88 82 Pulse Rate [Pulse Oximeter] Pulse Rate [Right Pulse Oximeter] Respiratory Rate 16 14 16 Blood Pressure 139/95 H 138/84 135/80 Blood Pressure [Le ft Arm] Blood Pressure [Le ft Upper Arm] Blood Pressure [Ri ght Arm] Pulse Oximetry 98 99 100 Oxygen Delivery Me thod OxyMask OxyMask OxyMask Oxygen Flow Rate 10 10 10 08/08/23 22:35 08/08/23 22:40 08/08/23 22:45 Temperature 97.6 F Pulse Rate 77 73 73 Pulse Rate [Pulse Oximeter] Pulse Rate [Right Pulse Oximeter] Respiratory Rate 14 14 18 Blood Pressure 127/82 126/82 134/84 Blood Pressure [Le ft Arm] Blood Pressure [Le ft Upper Arm] Blood Pressure [Ri ght Arm] Pulse Oximetry 100 98 98 Oxygen Delivery Me thod OxyMask OxyMask Room Air Oxygen Flow Rate 6 6 08/08/23 22:50 08/08/23 22:55 08/08/23 23:00 Temperature 97.7 F Pulse Rate 73 73 75 Pulse Rate [Pulse Oximeter] Pulse Rate [Right Pulse Oximeter] Respiratory Rate 16 16 14 Blood Pressure 138/86 138/87 136/83 Blood Pressure [Le ft Arm] Blood Pressure [Le ft Upper Arm] Blood Pressure [Ri ght Arm] Pulse Oximetry 97 98 97 Oxygen Delivery Me thod Room Air OxyMask OxyMask Oxygen Flow Rate 6 5 08/08/23 23:05 08/08/23 23:15 08/08/23 23:15 Temperature 97.7 F 98.5 F 98.5 F Pulse Rate 80 Pulse Rate [Pulse Oximeter] Pulse Rate [Right Pulse Oximeter] 76 76 Respiratory Rate 16 14 14 Blood Pressure 131/79 Blood Pressure [Le ft Arm] Blood Pressure [Le ft Upper Arm] Blood Pressure [Ri ght Arm] 140/89 H 140/89 H Pulse Oximetry 97 87 L 87 L Oxygen Delivery Me thod OxyMask Room Air Room Air Oxygen Flow Rate 5 08/08/23 23:15 08/08/23 23:15 08/08/23 23:30 Temperature 98.5 F 98.4 F Pulse Rate 76 72 Pulse Rate [Pulse Oximeter] Pulse Rate [Right Pulse Oximeter] Respiratory Rate 14 14 14 Blood Pressure 140/89 H 136/83 Blood Pressure [Le ft Arm] Blood Pressure [Le ft Upper Arm] Blood Pressure [Ri ght Arm] Pulse Oximetry 87 L 97 92 Oxygen Delivery Me thod Room Air Room Air Nasal Cannula Oxygen Flow Rate 1 08/08/23 23:45 08/09/23 00:00 05/04/24 00:15 Temperature 98.2 F 97.8 F 97.7 F Pulse Rate 70 73 Pulse Rate [Pulse Oximeter] Pulse Rate [Right Pulse Oximeter] 68 Respiratory Rate 16 16 16 Blood Pressure 133/81 135/79 Blood Pressure [Le ft Arm] 134/82 Blood Pressure [Le ft Upper Arm] Blood Pressure [Ri ght Arm] Pulse Oximetry 94 93 95 Oxygen Delivery Me thod Nasal Cannula Nasal Cannula Room Air Oxygen Flow Rate 1 0.5 08/09/23 00:15 08/09/23 00:30 08/09/23 01:00 Temperature 97.7 F 97.7 F Pulse Rate 68 68 Pulse Rate [Pulse Oximeter] Pulse Rate [Right Pulse Oximeter] 68 Respiratory Rate 16 14 16 Blood Pressure 134/79 136/79 Blood Pressure [Le ft Arm] 134/84 Blood Pressure [Le ft Upper Arm] Blood Pressure [Ri ght Arm] Pulse Oximetry 95 96 96 Oxygen Delivery Me thod Room Air Room Air Room Air Oxygen Flow Rate 08/09/23 01:00 08/09/23 01:30 08/09/23 02:00 Temperature 97.6 F Pulse Rate 68 68 66 Pulse Rate [Pulse Oximeter] Pulse Rate [Right Pulse Oximeter] Respiratory Rate 16 16 16 Blood Pressure 134/84 128/79 135/76 Blood Pressure [Le ft Arm] Blood Pressure [Le ft Upper Arm] Blood Pressure [Ri ght Arm] Pulse Oximetry 96 92 93 Oxygen Delivery Me thod Room Air Room Air Room Air Oxygen Flow Rate 08/09/23 03:00 08/09/23 04:00 08/09/23 04:00 Temperature 97.8 F 97.8 F Pulse Rate 66 69 Pulse Rate [Pulse Oximeter] Pulse Rate [Right Pulse Oximeter] 69 Respiratory Rate 16 16 16 Blood Pressure 132/82 131/80 Blood Pressure [Le ft Arm] 131/80 Blood Pressure [Le ft Upper Arm] Blood Pressure [Ri ght Arm] Pulse Oximetry 92 94 94 Oxygen Delivery Me thod Room Air Room Air Room Air Oxygen Flow Rate 08/09/23 04:33 08/09/23 08:00 08/09/23 08:15 Temperature 97.7 F 97.9 F 97.9 F Pulse Rate 68 Pulse Rate [Pulse Oximeter] Pulse Rate [Right Pulse Oximeter] 77 77 Respiratory Rate 16 18 18 Blood Pressure 134/82 Blood Pressure [Le ft Arm] 160/89 H 160/89 H Blood Pressure [Le ft Upper Arm] Blood Pressure [Ri ght Arm] Pulse Oximetry 95 92 92 Oxygen Delivery Me thod Room Air Room Air Room Air Oxygen Flow Rate 0.5 DS: Data Data Completed and Pending Labs on day of discharge: Labs from last 24 hours 08/09/23 08/08/23 08/08/23 06:23 23:55 20:55 WBC 8.23 RBC 3.80 L Hgb 12.5 Hct 34.6 MCV 91 MCH 33 MCHC 36 RDW Coeff of [place] Plt Count 224 Neut % (Auto) Lymph % (Auto) [place] % (Auto) Eos % (Auto) Baso % (Auto) Neut # (Auto) Lymph # (Auto) [place] # (Auto) Eos # (Auto) Baso # (Auto) Abs Immat Gran (auto) Imm/Tot Granulo (auto) Sodium 123 L* 117 L* 117 L* Potassium 4.3 Chloride 88 L Carbon Dioxide 26 Anion Gap 9 BUN 7 Creatinine 0.5 Estimated Creat Clear 117.09 Estimated GFR 112 Glucose 99 Calcium 8.7 Total Bilirubin 0.7 AST 45 H ALT 29 Alkaline Phosphatase 48 Total Protein 7.6 Albumin 4.7 Ethyl Alcohol 08/08/23 19:49 WBC 8.70 RBC 4.11 Hgb 13.2 Hct 37.1 MCV 90 MCH 32 MCHC 36 RDW Coeff of [place] 11.3 L Plt Count 250 Neut % (Auto) 85.7 H Lymph % (Auto) 9.2 L [place] % (Auto) 4.3 Eos % (Auto) 0.5 Baso % (Auto) 0.2 Neut # (Auto) 7.50 H Lymph # (Auto) 0.80 L [place] # (Auto) 0.40 Eos # (Auto) 0.04 Baso # (Auto) 0.02 Abs Immat Gran (auto) 0.01 Imm/Tot Granulo (auto) 0.1 Sodium 118 L* Potassium 3.7 Chloride 79 L Carbon Dioxide 25 Anion Gap 14 BUN 6 L Creatinine 0.4 L Estimated Creat Clear 146.36 Estimated GFR 118 Glucose 94 Calcium 8.8 Total Bilirubin AST ALT Alkaline Phosphatase Total Protein Albumin Ethyl Alcohol 0.19 H Discharge Plan Discharge Disposition: Home, Self-Care Date of Admission: 08/08/23 22:38 Attending Provider on Discharge: Rivera Arias Consulting Providers: Parris Laird; Cedrick Harris Primary Care Provider: Suzy Ge Condition: Stable Anticipated Discharge Date/Time: 08/09/23 11:37 Discharge Medications: New oxycodone 5 mg tablet 5 mg PO Q4-8H PRN (Reason: pain) Qty: 10 0RF Continued venlafaxine 75 mg capsule,extended release 24hr 75 mg PO DAILY diltiazem HCl 240 mg capsule,extended release 24hr 240 mg PO DAILY lisinopril 40 mg tablet 40 mg PO DAILY Held hydrochlorothiazide 25 mg tablet 25 mg PO DAILY Hold Instructions: Resume on 08/15/23. Do not resume taking this medication until follow up with your PCP Discharge Orders: Discharge Order (Routine); Ordered 08/09/23 Ordered By: Parris Laird Patient Education: Deep Sedation (DC), ORIF of a Wrist Fracture (DC) Additional Instructions: F/u PA visit in 10 days for splint removal and cast application F/U Dr. Arias at 3 week juan post op. Do not take your hydrochlorothiazide until follow-up with your PCP. DAILY FLUID RESTRICTION 1800 ML. RECHECK SODIUM FRIDAY WITH YOUR PCP Activity Level: Activity as Tolerated Activity Detail: Elevate operative extremity at/above heart level Range of motion of any joint (including fingers) out of splint 10+ times per day as tolerated (Elbow & digits). If splint is in place, then maintain splint until followup May shower as tolerated. Keep splint clean and dry Ice to operative site as needed (20 min on, 20 min off; repeat) Discharge Diet: Regular Diet Detail: 1800 ML FLUID RESTRICTION Follow Up Appointments: Rivera Arias MD [Staff Physician] - Suzy Ge MD [Primary Care Provider] - (FRIDAY FOR RECHECK SODIUM. HYDROCHLOROTHIAZIDE ON HOLD) Forms: [employer] Info Instructions
--- NOTE | 2023-08-09 10:44 | PC.NURSE ---
Discharge: Patient pleasant and cooperative. Up independently in room. Vitals stable and WNL. Pain 3/10 and tolerable. Discharge instructions reviewed, patient stated she will be the one to make the appointments. IV removed, catheter intact. Patient discharged @ 1029.
== END 2023-08-09 10:29 | disposition home or self-care (01) | DRG 511 ==
LOC: ED 20:54 → SS 21:20 → MEDSURG 23:36
PROVIDERS: Admitting Provider Internal Medicine; Emergency Provider Family Medicine; PCP Family Medicine; Visit Provider Orthopaedic Surgery Sports Medicine
PROC: 0PSJ04Z Reposition Left Radius with Internal Fixation Device, Open Approach (ICD-10-PCS; CPT 25575; principal; 2023-08-08 20:00)
DX: S52.552A Other extraarticular fracture of lower end of left radius, initial encounter for closed fracture (principal); E87.1 Hypo-osmolality and hyponatremia; S59.002A Unspecified physeal fracture of lower end of ulna, left arm, initial encounter for closed fracture; W19.XXXA Unspecified fall, initial encounter; Y93.39 Activity, other involving climbing, rappelling and jumping off; Y92.89 Other specified places as the place of occurrence of the external cause; I10 Essential (primary) hypertension; F10.129 Alcohol abuse with intoxication, unspecified; Y90.0 Blood alcohol level of less than 20 mg/100 ml; R63.1 Polydipsia
CPT/HCPCS: 01830; 36415; 73110; 76000; 80048; 80053; 82077; 84295; 85018; 85025; 85027; 93005; 99140; 99284; 99285; A4580; A9153; A9270; C1713; J0330; J1100; J2250; J2371; J2405; J2704; J3010; J3490; J7030

== ENCOUNTER 2023-10-10 13:13 | Outpatient (CLI) | payer OTHER, SELFPAY ==
--- NOTE | 2023-10-10 13:20 | CRLHL7_ITS ---
For Patients: As a result of the Cures Act, medical imaging exams and procedure reports are released immediately into your electronic medical record. You may view this report before your referring provider. If you have questions, please contact your health care provider. BILATERAL SCREENING MAMMOGRAM WITH COMPUTER-AIDED DETECTION AND TOMOSYNTHESIS TECHNIQUE: CC and MLO views were obtained. These mammographic images have been obtained using full-field digital technique. These mammographic images were interpreted with the benefit of computer-aided detection. Breast Tomosynthesis was used in this interpretation. COMPARISON FILM: 07/03/22, 07/23/18. FINDINGS: There are scattered areas of fibroglandular density. IMPRESSION: There is no radiographic evidence for malignancy. ASSESSMENT: BI-RADS Category 2: Benign RECOMMENDATION: Routine screening mammogram in 1 year. A lay language report of this examination will be provided to the patient. Demian Chou M.D. Diagnostic/Nuclear Medicine Radiologist [email or web address] SP/Dictated by: Demian Chou MD @ 10/16/2023 8:24:00 AM (Electronically Signed)
== END 2023-10-10 13:14 | disposition home or self-care (01) ==
LOC: MAMMO 13:14
PROVIDERS: PCP Family Medicine; Visit Provider Family Medicine
DX: Z12.31 Encounter for screening mammogram for malignant neoplasm of breast (principal)
CPT/HCPCS: 77063; 77067

== ENCOUNTER 2023-10-15 16:00 | Outpatient (RCR) | payer OTHER, SELFPAY | END 2023-10-15 16:43 | disposition home or self-care (01) | PROVIDERS: PCP Family Medicine; Visit Provider Physician Assistant | DX: Z98.890 Other specified postprocedural states (principal); Z51.89 Encounter for other specified aftercare | CPT/HCPCS: 97110; 97140; 97165; X5282 ==

== ENCOUNTER 2024-08-18 09:02 | Outpatient (RCR) | payer OTHER, SELFPAY | END 2024-09-14 12:40 | disposition home or self-care (01) | PROVIDERS: PCP Family Medicine; Visit Provider Orthopaedic Surgery | DX: Z48.89 Encounter for other specified surgical aftercare (principal); M20.11 Hallux valgus (acquired), right foot; Z51.89 Encounter for other specified aftercare | CPT/HCPCS: 97161 ==

== ENCOUNTER 2024-10-11 15:43 | Emergency (ER) | payer OTHER, SELFPAY ==
[2024-10-11] VITALS (17 sets, daily range): BP systolic 149–168; BP diastolic 77–93; PULSE 63–68; RESP 16–18; TEMP 36.1; O2SAT 86–99; BMI 24.5
--- OUTSIDE RECORDS SUMMARY | 2024-10-11 15:46 | XMS_ITS | Clinical Summary ---
Author Organization [employer] [facility] Address [facility] [place] [address] Care Team Providers Care Centrifugal Chiller Technician Name Role Phone Ruben Ferrer Unavailable Unavailable Suzy Ge MD Primary Care Provider Allergies Active Allergy Reactions Criticality Noted Date Comments Homeopathic Products 07/22/2006 Penicillins Rash 07/22/2006 Medications ascorbic acid, vitamin C, (VITAMIN C) 1,000 mg tablet Take 1 tablet by mouth once daily. 0 05/02/19 18 Active cholecalciferol (VITAMIN D) 1,000 unit capsule Take 1 capsule by mouth once daily. 0 07/27/19 20 Active Calcium Citrate 250 mg calcium tablet Take 500 mg by mouth once daily. Active cranberry npnw-R-xopfszjj coag (Azo Cranberry Plus Probiotic) 250-30-15 mg tab Take 1 Tablet by mouth once daily. Active metroNIDAZOLE 0.75 % cream Apply topically to affected area(s) once daily. Apply to face Active COLLAGEN MISC As directed once daily. Active metoprolol succinate 25 mg Sustained-Relea se tabletIndicatio ns:Hypertension , unspecified type Take 1 Tablet (25 mg) by mouth once daily. 90 Tablet 1 10/08/19 25 Active lisinopriL 40 mg tabletIndicatio ns:Hypertension , unspecified type Take 1 Tablet (40 mg) by mouth once daily. 90 Tablet 1 10/08/19 25 Active hydrALAZINE 10 mg tabletIndicatio ns:Hypertension Take 1 Tablet (10 mg) by mouth four times daily. 360 Tablet 10/08/19 25 Active dilTIAZem CD 240 mg extended release 24 hr capsuleIndicati ons:Hypertensio n, unspecified type Take 1 Capsule (240 mg) by mouth once daily. 90 Capsule 1 10/08/19 25 Active cephalexin 500 mg capsuleIndicati ons:Laceration of right lower extremity, initial encounter Take 1 Capsule (500 mg) by mouth four times daily for 10 days. 40 Capsule 10/08/19 25 025 Active venlafaxine 75 mg cp24 Extended-Releas e capsuleIndicati ons:Anxiety TAKE 1 CAPSULE BY MOUTH DAILY 90 Capsule 3 10/08/19 25 Active venlafaxine (EFFEXOR XR) 75 mg cp24 Extended-Releas e capsuleIndicati ons:Anxiety TAKE 1 CAPSULE BY MOUTH DAILY 90 Capsule 05/12/19 25 025 Discontinued(Re order (E-cancel not sent)) metoprolol succinate (TOPROL XL) 25 mg Sustained-Relea se tabletIndicatio ns:Hypertension , unspecified type Take 1 Tablet (25 mg) by mouth once daily. 90 Tablet 05/12/19 25 025 Discontinued lisinopriL (PRINIVIL; ZESTRIL) 40 mg tabletIndicatio ns:Hypertension , unspecified type Take 1 Tablet (40 mg) by mouth once daily. 90 Tablet 05/12/19 25 025 Discontinued(Re order (E-cancel not sent)) dilTIAZem CD (CARDIZEM CD) 240 mg extended release 24 hr capsuleIndicati ons:Hypertensio n, unspecified type Take 1 Capsule (240 mg) by mouth once daily. 90 Capsule 05/12/19 25 025 Discontinued hydrALAZINE 10 mg tabletIndicatio ns:Hypertension TAKE 1 TABLET (10 MG) BY MOUTH FOUR TIMES DAILY. 120 Tablet 09/02/19 25 025 Discontinued(Re order (E-cancel not sent)) dilTIAZem CD 240 mg extended release 24 hr capsuleIndicati ons:Hypertensio n, unspecified type TAKE 1 CAPSULE (240 MG) BY MOUTH ONCE DAILY. 90 Capsule 1 09/27/19 025 Discontinued(Re order (E-cancel not sent)) metoprolol succinate 25 mg Sustained-Relea se tabletIndicatio ns:Hypertension , unspecified type TAKE 1 TABLET (25 MG) BY MOUTH ONCE DAILY. 90 Tablet 1 10/06/19 025 Discontinued(Re order (E-cancel not sent)) Active Problems Problem Noted Date Diagnosed Date Alcohol dependence, binge pattern 08/19/2023 Hypertensive disease 08/19/2023 Orthostatic hypotension 01/06/2023 Alcohol use 01/05/2023 Syncope 01/05/2023 Subdural hematoma 01/05/2023 Hyponatremia 07/10/2017 Attention deficit hyperactiv ity disorder (ADHD), combined type 07/31/2016 Anxiety 08/21/2015 Hypertension 05/27/2011 Raynaud's syndrome 05/27/2011 Encounters Date Type Department Care Team Description 10/07/2024 2:25 PM CDT Office Visit [facility] [address] [place] [address] Suzy Ge MD Physical (53 year old) 10/07/2024 Travel 10/05/2024 Travel 10/04/2024 Refill [facility] [address] [place] [address] Suzy Ge MD Refill Request (Metoprolol Succinate) 09/24/2024 Refill [facility] [address] [place] [address] Suzy Ge MD Refill Request (Diltiazem Cd) 08/31/2024 Refill [facility] [address] [place] [address] Suzy Ge MD Refill Request (Propranolol, Hydralazine) from Last 3 Months Immunizations Immunization Administration Dates Next Due DTaP 07/29/1974 Hepatitis B (Peds) 04/19/1992,11/02/1991, 992 Influenza RIV4 (Age 18+ Year s) PRESERV FREE 01/31/2022 MMR 02/02/1971 Oral Polio Vaccine 05/01/1971,04/03/1970, 970 Polio Virus, Unspecified 07/29/1974 Td (Age >=7 Years) 07/25/2011,10/16/1994, 986 Tdap 04/18/2022, 2,05/01/1971,1969,03/03/1970,01/16/1970 Tuberculin (PPD) 12/14/2014 Family History Medical History Relation Name Comments Hypertension Father Alcohol/Drug Mother Arthritis Mother Psychiatric illness Mother depressi on Diabetes Paternal Grandfather Heart Disease Paternal Grandfather Hyperlipidemia Paternal Grandfather Hypertension Paternal Grandfather Hyperlipidemia Paternal Grandmother Relation Name Status Comments Daughter 1 Alive Daughter 2 Alive Father Alive Maternal Grandfather Maternal Grandmother Mother Alive Paternal Grandfather Paternal Grandmother Sister Alive Social History Tobacco Use Types Packs/Day Years Used Date Smoking Tobacco: Former Cigarettes 1 12 0 10/17/1993 - 10/17/2005 Smokeless Tobacco: Never Tobacco Cessation:Counseling Given: Not Answered Alcohol Use Standard Drinks/Week Comments Yes 6 (1 standard drink = 0.6 oz pur e alcohol) PHQ-2 Answer Date Recorded PHQ-2 TOTAL SCORE 2 10/07/2024 Social Connections Answer Date Recorded Do you often feel lonely or isolated from those around you? 0 05/12/2024 Alcohol Use Answer Date Recorded How often do you have a drink containing alcohol ? 3 01/10/2023 How many drinks containing a lcohol do you have on a typical day when you are drinking? 2 01/10/2023 How often do you have five or more drinks on one occasion? 2 01/10/2023 Financial Resource Strain Answer Date R ecorded Difficulty of Paying Living Expenses 3 05/12/2024 Difficulty of Paying Living Expenses Not on file 05/12/2024 Food Insecurity Answer Date Recorded Do you worry your food will run out before you are able to buy more? 1 05/12/2024 Transportation Needs Answer Date Record ed Does lack of transportation keep you from medica l appointments? 1 05/12/2024 Does lack of transportation keep you from work, meetings or getting things that you need? 1 05/12/2024 Housing Stability Answer Date Recorded What is your housing situation today? 1 05/12/2024 Utilities Answer Date Recorded Do you have trouble paying f or utilities (for example, heat, electricity, water, phone)? 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 Gender Identity Not on file Sexual Orientation Not on file Occupation Industry Job Start Date Job End Date OFC Not on file Not on file Not on file Obstetrics History Para Term AB IAB SAB Ectopic Multiple Livin g Live Births 2 2 2 Date Outcome GA Total Labor Labor/2nd/3rd Weight Sex Type Anes PTL Yanely A1 A5 Name Clin Para Para Last Filed Vital Signs Vital Sign Reading Time Taken Comments Blood Pressure 180/102 10/07/2024 2:09 PM CDT Pulse 65 10/07/2024 2:09 PM CDT Temperature 36.6 C (97.9 F) 01/06/2023 12:46 PM CDT Respiratory Rate 16 02/10/2023 10:32 AM AIRCRAFT [employer] MECHANIC Oxygen Saturation 96% 10/07/2024 2:09 PM CDT Inhaled Oxygen Concentration - - Weight 66.9 kg (147 lb 6.4 oz) 10/07/2024 2:09 P M CDT Height 165.7 cm (5' 5.24) 10/07/2024 2:09 PM CD T Body Mass Index 24.35 10/07/2024 2:09 PM CDT Plan of Treatment Health Maintenance Due Date Last Done Comments Hepatitis B series for 19+ ( 1 of 3 - 19+ 3-dose series) 1988 04/19/1992, 11/02/1991, 10/07/1991 Pneumococcal series for age 50+ (1 of 2 - PCV) 1988 Zoster (shingles) series for age 50+ (1 of 2) 11/26/2019 COVID-19 vaccine series (3 - season) 2023 12/29/2020, 12/08/2020 Mammogram for age 45-75 10/09/2024 10/10/19 24, 07/03/2022, 07/23/2018, Additional history exists Influenza Vaccine (#1) 2024 01/31/2022 BMI (ht and wt on same day) for age 18+ 10/07/2025 10/07/2024, 05/12/2024, 03/11/2023, Additional history exists Depression screening for age 12+ 10/07/2025 10/07/2024, 01/10/2023, 03/09/2021, Additional history exists Lipids for age 45-75 05/12/2029 05/12/2024, 03/11/2023, 04/18/2022, Additional history exists Colonoscopy through age 75 11/13/2030 11/13/2020 Tetanus booster 04/18/2032 04/18/2022, 07/06, 07/25/2011, Additional history exists HIV for age 15-65 Completed 01/10/2023 Hepatitis C screening for ag e 18-79 Completed 01/10/2023 Procedures Procedure Name Priority Date/Time Associated Diagnosis Comments LIPID PANEL W REFLEX MEASURED LDL Routine 05/12/2024 9:10 AM AIRCRA[employer] R[employer] MECHANIC Lipid screening SCAN-MAMMOGRAPHY REPORT 10/10/2023 12:00 AM CDT ANTI HIV 1/2 Routine 01/10/2023 2:04 PM CDT Screening for HIV (human immunodeficiency virus) ANTI HCV Routine 01/10/2023 2:04 PM CDT Need for hepatitis C screening test COLONOSCOPY SCREENING Routine 11/13/2020 12:00 AM CDT Screening for colon cancer from Last 3 Months or Most Recently Relevant to Health Maintenance Results * (ABNORMAL) LIPID PANEL W REFLEX MEASURED LDL (05/12/2024 9:10 AM AIRCRAFT RIGGING [employer] CONTR[employer] MECHANIC) CHOLESTEROL, TOTAL 203(H) <200 mg/dL [facility] HDL CHOLESTEROL 76 > OR = 50 mg/dL [facility] TRIGLYCERIDES 89 <150 mg/dL [facility] LDL-CHOLESTEROL 109(H) mg/dL (calc) [facility] Comment: Reference range: <100 Desirable range <100 mg/dL for primary prevention; <70 mg/dL for patients with CHD or diabetic patients with > or = 2 CHD risk factors. LDL-C is now calculated using the Carlos-Gutierrez calculation, which is a validated novel method providing better accuracy than the Friedewald equation in the estimation of LDL-C. Carlos SS et al. SOPHY. 2013;310(56): 6359-8475 (http://education.Vets [place]/faq/BRL820) CHOL/HDLC RATIO 2.7 <5.0 (calc) [facility] NON HDL CHOLESTEROL 127 <130 mg/dL (calc) [facility] Comment: For patients with diabetes plus 1 major ASCVD risk factor, treating to a non-HDL-C goal of <100 mg/dL (LDL-C of <70 mg/dL) is considered a therapeutic option. 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[employer] MECHANIC 05/12/2024 9:10 AM AIRCRAFT RIGGING AND CONTR[employer] MECHANIC us Suzy Ge MD CHEMISTRY Final Resul t [facility] [address] [place] [address], [facility] [address] * SCAN-MAMMOGRAPHY REPORT (10/10/2023 12:00 AM CDT) Anatomical Region Laterality Modality Other us Scanner OTHER Final Result * ANTI HCV (01/10/2023 2:04 PM CDT) HEPATITIS C ANTIBODY Non-Reacti ve Non-React stef 01/10/2023 8:36 PM CDT [facility] Comment:Please note, per www .CDC.gov: If a patient is known to be at high risk of HCV infection, or is symptomatic, and the physician's suspicion of HCV infection is high, HCV RNA testing is often employed and is of diagnostic value, even after an initial negative anti-HCV test result. Blood BLOOD SPECIMEN / Unknown Venipuncture / Unknown 01/10/2023 2:04 PM CDT 01/10/2023 2:06 PM CDT Jeannie Salinas DO SEND OUTS Final Resu lt Performing Organization Address [facility] Co de Phone Number [facility] [address] [place] [address], * ANTI HIV 1/2 [30087.0] (01/10/2023 2:04 PM CDT) HIV-1/HIV-2 SCREEN Non-Reacti ve Non-Reacti ve 01/10/2023 8:37 PM CDT [facility] Comment:HIV-1 p24 and HIV-1/ HIV-2 Ab Not Detected. Blood BLOOD SPECIMEN / Unknown Venipuncture / Unknown 01/10/2023 2:04 PM CDT 01/10/2023 2:06 PM CDT Jeannie Fry Brad DO SEND OUTS Final Resu lt Performing Organization Address [facility] Co de Phone Number [facility] [address] [place] [address], [place] * COLONOSCOPY SCREENING (11/13/2020 12:00 AM CDT) Suzy Ge MD GI PROCEDURE ORD Final Resu lt from Last 3 Months or Most Recently Relevant to Health Maintenance Insurance [facility] SHARED SERVICES Advance Directives * Full Code (Latest Code Status on File) Date Activated Date Inactivated Comments 01/04/2023 10:27 PM 01/06/2023 4:02 PM Question Answer Comments Code Status Discussion: Reviewed Preferences Care Teams Centrifugal Chiller Technician Relationship Specialty Start Date End Date Suzy Ge MD [address] [facility] [address] PCP - General Family Practice 04/29/17 Ruben Ferrer Family Practice 05/27/11
--- NOTE | 2024-10-11 16:54 | CRLHL7_ITS ---
For Patients: As a result of the Century Cures Act, medical imaging exams and procedure reports are released immediately into your electronic medical record. You may view this report before your referring provider. If you have questions, please contact your health care provider. Indication: Fall. Left-sided rib pain. Technique: Frontal chest radiograph. Right-sided lower rib fractures. Comparison: Chest radiographs from 01/19/2021. Findings: Mildly displaced left posterior rib fractures at T7 and T8. Mildly displaced left lateral rib fracture at T9. Moderately displaced and angulated left posterior T10 and T11 rib fractures. Small left pleural effusion. Bibasilar atelectasis. Impression: 1. Multiple rib fractures at T7 through T11, with less prominent displacement at the T10 and T11 levels. 2. Small left pleural effusion and bibasilar atelectasis. Dictated by Bo Emmanuel MD @ 10/11/2024 6:02:45 PM (Electronically Signed)
[2024-10-11] MEDS: ONDANSETRON 2 MG/ML inj 4 MG IVP (19:11)
--- NOTE | 2024-10-11 19:18 | ED.GENADULT ---
HPI - General Adult General Time Seen by Provider: 19:18 Date Seen: 10/11/24 Chief complaint: Rib Pain Stated complaint: Possible fractured rib on left side Time Seen by Provider: 10/11/24 19:17 Source: patient and RN notes reviewed Mode of arrival: ambulatory Limitations: no limitations History of Present Illness HPI narrative: Shelby is a very pleasant 53-year-old female with a history of hypertension, alcohol use disorder and chronic hyponatremia per her chart comes to the emergency room for evaluation regarding left-sided rib pain after a fall. Patient notes that she was in the shower and simply slipped hitting the left side of her posterior ribs on the lip of the shower. She denies any other trauma including head or neck. Tests that she had some old oxycodone left over from bunion surgery earlier this year and that is what she used overnight for pain control. She notes that the pain is now causing her to feel nauseated. Denies abdominal pain. Is not currently on a blood thinner. Movement definitely increases her discomfort. It is difficult for her to take a deep breath. Related Data Home Medications ?Medication ?Instructions ?Recorded ?Confirmed diltiazem HCl 240 mg 240 mg PO DAILY 08/08/23 10/11/24 capsule,extended release 24 hr lisinopril 40 mg tablet 40 mg PO DAILY 08/08/23 10/11/24 venlafaxine 75 mg capsule,extended 75 mg PO DAILY 08/08/23 10/11/24 release 24 hr metoprolol succinate 25 mg 25 mg PO DAILY 09/05/23 10/11/24 tablet,extended release 24 hr cephalexin 500 mg capsule 500 mg PO QID 10/11/24 10/11/24 hydralazine 10 mg tablet 10 mg PO QID 10/11/24 10/11/24 Allergies Allergy/AdvReac Type Severity Reaction Status Date / Time Penicillins Allergy Unknown Verified 10/11/24 19:45 [facility] Medical History Tobacco use disorder ?F17.200 - Nicotine dependence, unspecified, uncomplicated (ICD-10) Intramural leiomyoma of uterus ?D25.1 - Intramural leiomyoma of uterus (ICD-10) 2 para 2 ?Z78.9 - Other specified health status (ICD-10) History of subdural hematoma ?Z86.79 - Personal history of other diseases of the circulatory system (ICD-10) History of syncope ?Z87.898 - Personal history of other specified conditions (ICD-10) History of orthostatic hypotension ?Z86.79 - Personal history of other diseases of the circulatory system (ICD-10) Raynaud's syndrome ?I73.00 - Raynaud's syndrome without gangrene (ICD-10) Attention deficit hyperactivity disorder (ADHD), combined type ?F90.2 - Attention-deficit hyperactivity disorder, combined type (ICD-10) Anxiety disorder ?F41.9 - Anxiety disorder, unspecified (ICD-10) Chronic hyponatremia ?E87.1 - Hypo-osmolality and hyponatremia (ICD-10) Alcohol use disorder ?F10.90 - Alcohol use, unspecified, uncomplicated (ICD-10) Hypertension ?I10 - Essential (primary) hypertension (ICD-10) Surgical History History of open reduction and internal fixation (ORIF) procedure (08/08/23) ?Z98.890 - Other specified postprocedural states (ICD-10) History of tubal ligation ?Z98.51 - Tubal ligation status (ICD-10) History of hysterectomy ?Z90.710 - Acquired absence of both cervix and uterus (ICD-10) Hx of appendectomy ?Z90.49 - Acquired absence of other specified parts of digestive tract (ICD-10) Family History Mother Alcohol dependence Arthritis Psychiatric illness Paternal Grandfather Diabetes Heart disease High cholesterol High blood pressure Paternal Grandmother High cholesterol Father High blood pressure Social History Narrative: former smoker-Quit 2005 What is your current living situation?: I presently have a place to live Problems where you live: no known problems Problems where you live details: no known problems In the past 12 months, utilities in danger of being shut off: no In past 12 months, lack of transportation kept you from medical appts, meetings, work, or getting things needed for daily living: no In the past 12 mos, have been you worried that your food would run out before you had money to buy more?: never true In the past 12 mos, the food you bought just didn't last and you didn't have money to buy more?: never true Highest level of school completed/degree received: Associate degree: occupational, technical, vocational program Smoking Status: Former smoker What tobacco products do you use: cigarettes Smoking quit date/years: >15 years ago Do you use any of these nicotine containing products: None Second hand tobacco smoke exposure: No How often do you have a drink containing alcohol: 2-3 times a week Alcohol type: beer How many standard drinks containing alcohol do you have on a typical day: 3 or 4 How often do you have six or more drinks on one occasion: Never AUDIT-C Alcohol total score: 4 Non-prescribed substance use: denies use Caffeine: Yes (diet coke) How often does anyone, including family, friends and others, physically hurt you: never How often does anyone, including family, friends and others, insult or talk down to you: never How often does anyone, including family, friends and others, threaten you with harm: never How often does anyone, including family, friends and others, scream or curse at you: never service: No Exam Narrative: Exam Narrative: Patient is alert and oriented. Very pleasant. Guarded in movement. External ears eyes nose clear. Heart with a regular rate and rhythm. Lungs show decreased breath sounds on the left. Areas of ecchymosis noted over the lateral and posterior lateral rib cage ribs approximately 6 through 13. No crepitus is palpated no subcutaneous emphysema. Patient is very tender to the touch. Palpation of abdomen shows no tenderness in the epigastrium or left upper quadrant. Moving all other extremities. Const: Vital Signs, click to edit/add: Vital Signs - 24 hr 10/11/24 15:53 10/11/24 19:32 10/11/24 20:08 Temperature 96.9 F L Pulse Rate 66 Pulse Rate [Pulse Oximeter] 66 67 Respiratory Rate 16 18 Blood Pressure Blood Pressure [Ri ght Upper Arm] 168/77 H 162/93 H Pulse Oximetry 95 93 Oxygen Delivery Me thod Room Air Room Air Oxygen Flow Rate 10/11/24 20:15 10/11/24 20:30 10/11/24 20:30 Temperature Pulse Rate 66 63 Pulse Rate [Pulse Oximeter] Respiratory Rate Blood Pressure Blood Pressure [Ri ght Upper Arm] Pulse Oximetry 90 86 L 88 Oxygen Delivery Me thod Room Air Oxygen Flow Rate 10/11/24 20:45 10/11/24 20:47 10/11/24 20:48 Temperature Pulse Rate 67 67 68 Pulse Rate [Pulse Oximeter] Respiratory Rate Blood Pressure 150/90 H Blood Pressure [Ri ght Upper Arm] Pulse Oximetry 95 98 98 Oxygen Delivery Me thod Oxygen Flow Rate 10/11/24 20:49 10/11/24 21:00 10/11/24 21:02 Temperature Pulse Rate 67 65 Pulse Rate [Pulse Oximeter] Respiratory Rate Blood Pressure 160/89 H Blood Pressure [Ri ght Upper Arm] Pulse Oximetry 98 99 97 Oxygen Delivery Me thod Nasal Cannula Oxygen Flow Rate 3 10/11/24 21:15 10/11/24 21:19 10/11/24 21:30 Temperature Pulse Rate 65 64 63 Pulse Rate [Pulse Oximeter] Respiratory Rate Blood Pressure 166/87 H Blood Pressure [Ri ght Upper Arm] Pulse Oximetry 97 95 96 Oxygen Delivery Me thod Oxygen Flow Rate 10/11/24 21:32 10/11/24 21:45 10/11/24 21:47 Temperature Pulse Rate 63 64 63 Pulse Rate [Pulse Oximeter] Respiratory Rate Blood Pressure 153/87 H 149/78 H Blood Pressure [Ri ght Upper Arm] Pulse Oximetry 97 98 97 Oxygen Delivery Me thod Oxygen Flow Rate Documenting provider has reviewed patient's vital signs: yes Course Course ED Course: X-rays had been completed prior to meeting the patient given the high census in the ED. multiple fractures noted on the left. I have informed patient that I will be sending her over for CT with IV contrast. Will also obtain CBC, comprehensive panel, urinalysis. Pain controlled with morphine and Zofran. Have given 1 L of normal saline the pending the CT. Reevaluation(s) Reevaluation #1: Patient noted to have a sodium of 119. I did discuss this with patient and she does note a history of alcohol use. According to her chart she has had alcohol abuse with hyponatremia. She notes that she is only drinking 4-5 beers over a week at this time and denies a history of withdrawal. She denies feeling shaky at this time. Notes her last sodium was 126 at the [facility]. Will hold off on any further fluids at this time. Given the chronicity of the low sodium and danger of freezing it too quickly. Vital Signs Vital signs: Initial Vital Signs Temperature 96.9 F L 10/11/24 15:53 Temperature Source Temporal Artery Scan 10/11/24 15:53 Pulse Rate 66 10/11/24 15:53 Respiratory Rate 16 10/11/24 15:53 Blood Pressure 168/77 H 10/11/24 15:53 Blood Pressure Mean 107 H 10/11/24 15:53 Pulse Oximetry 95 10/11/24 15:53 Oxygen Delivery Method Room Air 10/11/24 15:53 Vital Signs Temperature 96.9 F L 10/11/24 15:53 Pulse Rate 66 10/11/24 15:53 Respiratory Rate 16 10/11/24 15:53 Blood Pressure 168/77 H 10/11/24 15:53 Pulse Oximetry 95 10/11/24 15:53 Oxygen Delivery Method Room Air 10/11/24 15:53 Temperature 96.9 F L 10/11/24 15:53 Pulse Rate 63 10/11/24 21:47 Respiratory Rate 18 10/11/24 19:32 Blood Pressure 149/78 H 10/11/24 21:47 Pulse Oximetry 97 10/11/24 21:47 Oxygen Delivery Method Nasal Cannula 10/11/24 20:49 Oxygen Flow Rate 3 10/11/24 20:49 Medications Administered Medications: Discontinued Medications Generic Name Dose Route Start Last Admin Trade Name Freq PRN Reason Stop Dose Admin Sodium Chloride 1,000 mls @ 1,000 mls/hr 10/11/24 20:16 10/11/24 21:35 0.9 % Sodium Chloride 1000 Ml IV 10/11/24 21:15 Infused .Q1H ANN Infusion Morphine Sulfate 4 mg 10/11/24 19:53 10/11/24 19:59 Morphine 4 Mg/Ml Inj IVP 10/11/24 19:54 4 mg ONCE ONE Administration Ondansetron HCl 4 mg 10/11/24 19:10 10/11/24 19:11 Ondansetron 2 Mg/Ml Inj IVP 10/11/24 19:11 4 mg ONCE ONE Administration Medical Decision Making MDM Narrative Medical decision making narrative: 1. Multiple rib fractures with hemothorax-rib fractures 7 through 11 with fractures some comminuted along with moderate hemothorax. Patient is stable hemodynamically at this time but given findings and risk of worsening status will need to transfer to trauma center. Patient wishes to go to [facility] and we have received acceptance from them for transfer. Patient mildly hypoxic and thus we have placed oxygen. Pain control has been with morphine and Zofran. 2. History of alcohol abuse - patient denies daily alcohol use. Alcohol 0.02.Patient denies history of withdrawal or seizures. Does not appear to be in withdrawal tonight to but did offer Ativan. Patient did not feel she needs this. 3. Hyponatremia-patient notes chronic hyponatremia with most recent value at the [facility] of 126. She did receive a L of normal saline prior to labs being return. Have held off on any further fluid hydration. 2. Disposition-ambulance ALS transfer to [facility]. Dr. Jiang ED physician accepting. Medical Records Medical records reviewed: Yes I reviewed the patient's medical records Lab Data Lab results reviewed: Yes I reviewed the patient's lab results Labs: Lab Results 10/11/24 10/11/24 Range/Units 19:26 20:16 WBC 6.04 (4.50-11.00) K/uL RBC 3.35 L (4.00-5.20) m/uL Hgb 11.4 L (12.0-16.0) gm/dL Hct 31.8 L (33.0-51.0) % MCV 95 (80-100) fL MCH 34 (26-34) pg MCHC 36 (32-36) gm/dL RDW Coeff of [place] 11.4 L (11.5-15.5) % Plt Count 228 (140-440) K/uL Neut % (Auto) 79.5 H (42.0-72.0) % Lymph % (Auto) 7.0 L (20-44) % [place] % (Auto) 13.1 H (0.0-11.0) % Eos % (Auto) 0.0 (0.0-7.0) % Baso % (Auto) 0.2 (0.0-3.0) % Neut # (Auto) 4.80 (1.7-7.0) K/uL Lymph # (Auto) 0.40 L (0.90-2.90) K/uL [place] # (Auto) 0.80 (0.00-0.90) K/UL Eos # (Auto) 0.00 (0.00-0.50) K/uL Baso # (Auto) 0.01 (0.00-0.30) K/uL Abs Immat Gran (auto) 0.01 (0.00-0.30) K/uL Imm/Tot Granulo (auto) 0.2 % Sodium 119 L* (135-149) mmol/L Potassium 4.5 (3.6-5.1) mmol/L Chloride 79 L (96-114) mmol/L Carbon Dioxide 27 (20-32) mmol/L Anion Gap 13 (7-15) mEq/L BUN 8 (7-30) mg/dL Creatinine 0.5 (0.5-1.5) mg/dL Estimated Creat Clear 115.74 Estimated GFR 111 ml/min Glucose 100 (60-115) mg/dL Calcium 9.6 (8.4-10.6) mg/dL Total Bilirubin 0.9 (0.1-1.5) mg/dL AST 69 H (12-35) U/L ALT 68 H (4-35) U/L Alkaline Phosphatase 64 (40-150) U/L Total Protein 8.3 (6.0-8.3) g/dL Albumin 5.2 H (3.3-5.0) g/dL Ethyl Alcohol 0.02 (0.01-0.03) % Lab Acknowledgement TEST ADDED ON Imaging Data Chest x-ray: Attestation: I have reviewed the pertinent imaging results. My impression: Pleural effusion noted. Multiple rib fractures noted Radiologist's impression: Findings: Mildly displaced left posterior rib fractures at T7 and T8. Mildly displaced left lateral rib fracture at T9. Moderately displaced and angulated left posterior T10 and T11 rib fractures. Small left pleural effusion. Bibasilar atelectasis. Impression: 1. Multiple rib fractures at T7 through T11, with less prominent displacement at the T10 and T11 levels. 2. Small left pleural effusion and bibasilar atelectasis. CT Chest/Ab/Pelvis: Attestation: I have reviewed the pertinent imaging results. My impression: Hemothorax noted, multiple rib fractures Radiologist's impression: Chest: No thyroid nodules. No thoracic lymphadenopathy. Calcified mediastinal and right hilar lymph nodes, likely sequela of remote granulomatous disease. The heart is within normal limits in size. No pericardial effusion. The thoracic aorta and pulmonary artery are normal in caliber. No aortic dissection or central pulmonary embolism. Moderate size left-sided hemothorax secondary to left 7th through 11th rib fractures, some of which are comminuted with [id number] displacement of some of the fracture fragments. Atelectasis of the left lung base and medial aspect of the right middle lobe. Nodules or masses no suspicious pulmonary. The airways are clear. Bilateral breast implants. Minimal degenerative changes of the spine. No suspicious osseous lesions. Abdomen/pelvis: Mild diffuse hepatic steatosis. No suspicious hepatic lesions. The gallbladder and biliary system are unremarkable. The spleen, pancreas, and adrenal glands are unremarkable. The kidneys are normal in size and perfusion a normal fashion. Well-circumscribed low-density renal lesions bilaterally, likely small benign cysts. No suspicious enhancing renal masses or lesions. No renal calculi or hydroureteronephrosis. The bladder is unremarkable. Postsurgical changes of hysterectomy. No suspicious adnexal lesions. There is no evidence of bowel obstruction, inflammation, or acute traumatic injury. The appendix is not visualized; however, there are no inflammatory changes in the right lower quadrant to suggest acute appendicitis. Redundant colon. Few colonic diverticula without CT evidence of acute diverticulitis. No free air, free fluid, or abscess. No abdominopelvic lymphadenopathy. The vasculature is unremarkable. Degenerative changes of the spine. Impression: 1. Moderate size left-sided hemothorax secondary to left 7th through 11th rib fractures, some of which are comminuted with [id number] displacement of some of the fracture fragments. No pneumothorax. 2. Atelectasis of the left lung base. 3. Additional incidental findings as detailed above. Discharge Plan Discharge Clinical Impression: Hemothorax on left Multiple rib fractures Qualifiers: Encounter type: initial encounter Fracture type: closed Laterality: left Qualified Code(s): S22.42XA - Multiple fractures of ribs, left side, initial encounter for closed fracture Patient Disposition: [facility] Discharge Location: [facility] [place] Condition: Stable
--- NOTE | 2024-10-11 19:26 | CRLHL7_ITS ---
For Patients: As a result of the Century Cures Act, medical imaging exams and procedure reports are released immediately into your electronic medical record. You may view this report before your referring provider. If you have questions, please contact your health care provider. Indication: LT SIDED PAIN, FELL IN SHOWER LAST NIGHT Technique: CT chest/abdomen/pelvis with IV contrast utilizing 72 mL Isovue 370 Comparison: Same day rib radiographs Findings: Chest: No thyroid nodules. No thoracic lymphadenopathy. Calcified mediastinal and right hilar lymph nodes, likely sequela of remote granulomatous disease. The heart is within normal limits in size. No pericardial effusion. The thoracic aorta and pulmonary artery are normal in caliber. No aortic dissection or central pulmonary embolism. Moderate size left-sided hemothorax secondary to left 7th through 11th rib fractures, some of which are comminuted with [id number] displacement of some of the fracture fragments. Atelectasis of the left lung base and medial aspect of the right middle lobe. Nodules or masses no suspicious pulmonary. The airways are clear. Bilateral breast implants. Minimal degenerative changes of the spine. No suspicious osseous lesions. Abdomen/pelvis: Mild diffuse hepatic steatosis. No suspicious hepatic lesions. The gallbladder and biliary system are unremarkable. The spleen, pancreas, and adrenal glands are unremarkable. The kidneys are normal in size and perfusion a normal fashion. Well-circumscribed low-density renal lesions bilaterally, likely small benign cysts. No suspicious enhancing renal masses or lesions. No renal calculi or hydroureteronephrosis. The bladder is unremarkable. Postsurgical changes of hysterectomy. No suspicious adnexal lesions. There is no evidence of bowel obstruction, inflammation, or acute traumatic injury. The appendix is not visualized; however, there are no inflammatory changes in the right lower quadrant to suggest acute appendicitis. Redundant colon. Few colonic diverticula without CT evidence of acute diverticulitis. No free air, free fluid, or abscess. No abdominopelvic lymphadenopathy. The vasculature is unremarkable. Degenerative changes of the spine. Impression: 1. Moderate size left-sided hemothorax secondary to left 7th through 11th rib fractures, some of which are comminuted with [id number] displacement of some of the fracture fragments. No pneumothorax. 2. Atelectasis of the left lung base. 3. Additional incidental findings as detailed above. Please note that all CT scans at this facility use dose modulation, iterative reconstruction, and/or weight-based dosing when appropriate to reduce radiation dose to as low as reasonably achievable. Dictated by Huber Morales MD @ 10/11/2024 8:38:05 PM (Electronically Signed)
[2024-10-11 19:45] LABS: Hematocrit 31.8 % (33.0-51.0); Hemoglobin* 11.4 gm/dL (12.0-16.0); Immature Granulocytes Abs Auto 0.01 K/uL (0.00-0.30); Immature Granulocytes Pct Auto 0.2 %; Mean Corpuscular HGB Conc 36 gm/dL (32-36); Mean Corpuscular Hemoglobin 34 pg (26-34); Mean Corpuscular Volume 95 fL (80-100); RDW Coefficient of Variation % 11.4 % (11.5-15.5); Red Blood Count 3.35 m/uL (4.00-5.20); White Blood Count* 6.04 K/uL (4.50-11.00)
[2024-10-11 19:46] LABS: Lymphocytes Absolute Auto 0.40 K/uL (0.90-2.90)
[2024-10-11 19:47] LABS: Slide Review Reflex No
[2024-10-11 19:48] LABS: Albumin* 5.2 g/dL (3.3-5.0); Chloride* 79 mmol/L (96-114)
[2024-10-11 19:49] LABS: Potassium* 4.5 mmol/L (3.6-5.1)
[2024-10-11 19:51] LABS: Anion Gap 13 mEq/L (7-15); Blood Urea Nitrogen* 8 mg/dL (7-30); Carbon Dioxide* 27 mmol/L (20-32); Creatinine* 0.5 mg/dL (0.5-1.5); Est. Creatinine Clearance* 115.74; Estimated Glomerular Filt Rate 111 ml/min
[2024-10-11 19:52] LABS: Alanine Aminotransferase* 68 U/L (4-35); Alkaline Phosphatase* 64 U/L (40-150); Aspartate Amino Transferase* 69 U/L (12-35); Bilirubin Total* 0.9 mg/dL (0.1-1.5); Calcium* 9.6 mg/dL (8.4-10.6); Glucose* 100 mg/dL (60-115); Total Protein* 8.3 g/dL (6.0-8.3)
[2024-10-11 19:55] LABS: Sodium* 119 mmol/L (135-149)
[2024-10-11] MEDS: MORPHINE 4 MG/ML INJ IVP (19:59)
[2024-10-11 20:21] LABS: Lab Add On Test TEST ADDED ON
[2024-10-11 20:32] LABS: Ethanol* 0.02 % (0.01-0.03)
== END 2024-10-11 22:25 | disposition short-term general hospital (02) ==
PROVIDERS: Emergency Provider Family Medicine; PCP Family Medicine
DX: S22.42XA Multiple fractures of ribs, left side, initial encounter for closed fracture (principal); E87.1 Hypo-osmolality and hyponatremia; J94.2 Hemothorax
CPT/HCPCS: 36415; 71101; 71260; 74177; 80053; 82077; 85025; 94761; 96374; 96375; 99284; 99285; J2270; J2405; J7030; Q9967

== ENCOUNTER 2024-10-11 22:22 | Outpatient (CLI) | payer OTHER, SELFPAY | END 2024-10-11 22:23 | disposition home or self-care (01) | LOC: AMB 10-14 10:56 | PROVIDERS: PCP Family Medicine; Visit Provider Family Medicine | DX: J94.2 Hemothorax (principal); S22.49XA Multiple fractures of ribs, unspecified side, initial encounter for closed fracture | CPT/HCPCS: A0425; A0429 ==